=== PATIENT | female | born 1960 | race Caucasian/White ===

== ENCOUNTER 2017-05-14 08:21 | Emergency (ER) | payer OTHER ==
[~2017-05-14] VITALS: Ht 167.6 cm; Wt 50.8 kg
[2017-05-14] MEDS ORDERED: methylPREDNISolone SOD SUCC PF 125 MG/2 ML VIAL. IV ONE (08:45)
[2017-05-14] MEDS ORDERED: BENZONATATE 100 MG CAPSULE. PO ONE (08:45)
[2017-05-14] MEDS ORDERED: IPRATRPIUM/ALBUTEROL 0.5/2.5MG 3 ML NEBU. NEB ONE (08:45)
[2017-05-14] MEDS ORDERED: ALBUTEROL SULFATE 2.5 MG/3 ML NEBU. CONT NEB ONE (08:45)
--- NOTE | 2017-05-14 08:45 | PHYS DOC ---
Past Medical History Past Medical History: CAD, Hypertension, [place] Past Surgical History: Other Additional Past Surgical Histo: cardiac stent 2003 Alcohol Use: Occasionally Additional Information: "a beer in the evenings" Drug Use: None Adult General Chief Complaint Chief Complaint: SHORTNESS OF BREATH HPI HPI Patient is a 56 year old female with history of hypertension, COPD, [place], who presents today complaining of shortness of breath and a cough that began yesterday. Patient states she is a smoker using 1 pack of cigarettes per day. Patient denies any previous diagnosis for COPD , emphysema. Denies any chest pain. PCP is Dr. Bueno Review of Systems Review of Systems Constitutional: Denies fever or chills [] Eyes: Denies change in visual acuity, redness, or eye pain [] HENT: Denies nasal congestion or sore throat [] Respiratory: Reports cough or shortness of breath Cardiovascular: No additional information not addressed in HPI [] GI: Denies abdominal pain, nausea, vomiting, bloody stools or diarrhea [] : Denies dysuria or hematuria [] Musculoskeletal: Denies back pain or joint pain [] Integument: Denies rash or skin lesions [] Neurologic: Denies headache, focal weakness or sensory changes [] All other systems were reviewed and found to be within normal limits, except as documented in this note. Current Medications Current Medications Current Medications Medications (Trade) Dose Ordered Sig/Dilip Start Time Stop Time Status Last Admin Dose Admin Albuterol Sulfate (Ventolin Neb Soln) 10 mg 1X ONCE 05/14/17 08:45 05/14/17 08:46 DC 05/14/17 08:48 10 MG Albuterol/ Ipratropium (Duoneb) 3 ml 1X ONCE 05/14/17 08:45 05/14/17 08:46 DC 05/14/17 08:48 3 ML Benzonatate (Tessalon Perle) 200 mg 1X ONCE 05/14/17 08:45 05/14/17 08:46 DC 05/14/17 08:58 200 MG Lisinopril (Prinivil) 20 mg 1X ONCE 05/14/17 09:00 05/14/17 09:01 DC 05/14/17 10:33 20 MG Methylprednisolone Sodium Succinate (SOLU-Medrol 125MG VIAL) 125 mg 1X ONCE 05/14/17 08:45 05/14/17 08:46 DC 05/14/17 08:57 125 MG Allergies Allergies Allergies Coded Allergies Type Severity Reaction Last Updated Verified codeine Allergy Intermediate GI s/s,"sweating" 05/14/17 Yes Physical Exam Physical Exam Constitutional: Well developed, well nourished, no acute distress, non-toxic appearance. [] HENT: Normocephalic, atraumatic, bilateral external ears normal, oropharynx moist, no oral exudates, nose normal. [] Eyes: PERRLA, EOMI, conjunctiva normal, no discharge. [] Neck: Normal range of motion, no tenderness, supple, no stridor. [] Cardiovascular:Heart rate regular rhythm, no murmur [] Lungs & Thorax: Patient has a moist productive cough in the ED. She appears short of air. Her posterior lung bases are coarse Abdomen: Bowel sounds normal, soft, no tenderness, no masses, no pulsatile masses. [] Skin: Warm, dry, no erythema, no rash. [] Back: No tenderness, no CVA tenderness. [] Extremities: No tenderness, no cyanosis, no clubbing, ROM intact, no edema. [] Neurologic: Alert and oriented X 3, normal motor function, normal sensory function, no focal deficits noted. [] Psychologic: Affect normal, judgement normal, mood normal. [] Current Patient Data Vital Signs Vital Signs Date Time Temp Pulse Resp B/P (MAP) Pulse Ox O2 Delivery O2 Flow Rate FiO2 05/14/17 10:33 96 159/84 05/14/17 09:09 Room Air 05/14/17 08:25 98.0 28 96 98.0 Lab Values Laboratory Tests Test 05/14/17 08:35 White Blood Count 7.8 x10^3/uL (4.0-11.0) Red Blood Count 4.76 x10^6/uL (3.50-5.40) Hemoglobin 15.9 g/dL (12.0-15.5) H Hematocrit 46.9 % (36.0-47.0) Mean Corpuscular Volume 99 fL (79-100) Mean Corpuscular Hemoglobin 33 pg (25-35) Mean Corpuscular Hemoglobin Concent 34 g/dL (31-37) Red Cell Distribution Width 12.8 % (11.5-14.5) Platelet Count 312 x10^3/uL (140-400) Neutrophils (%) (Auto) 61 % (31-73) Lymphocytes (%) (Auto) 22 % (24-48) L Monocytes (%) (Auto) 10 % (0-9) H Eosinophils (%) (Auto) 6 % (0-3) H Basophils (%) (Auto) 1 % (0-3) Neutrophils # (Auto) 4.8 x10^3uL (1.8-7.7) Lymphocytes # (Auto) 1.7 x10^3/uL (1.0-4.8) Monocytes # (Auto) 0.8 x10^3/uL (0.0-1.1) Eosinophils # (Auto) 0.5 x10^3/uL (0.0-0.7) Basophils # (Auto) 0.0 x10^3/uL (0.0-0.2) Prothrombin Time 11.9 SEC (11.7-14.0) Prothrombin Time INR 0.9 (0.8-1.1) Sodium Level 142 mmol/L (136-145) Potassium Level 4.1 mmol/L (3.5-5.1) Chloride Level 104 mmol/L (98-107) Carbon Dioxide Level 25 mmol/L (21-32) Anion Gap 13 (6-14) Blood Urea Nitrogen 9 mg/dL (7-20) Creatinine 0.8 mg/dL (0.6-1.0) Estimated GFR (Cockcroft-Gault) 73.7 BUN/Creatinine Ratio 11 (6-20) Glucose Level 111 mg/dL (70-99) H Calcium Level 9.1 mg/dL (8.5-10.1) Total Bilirubin 0.3 mg/dL (0.2-1.0) Aspartate Amino Transferase (AST) 29 U/L (15-37) Alanine Aminotransferase (ALT) 22 U/L (14-59) Alkaline Phosphatase 113 U/L (46-116) Creatine Kinase 132 U/L (26-192) Creatine Kinase MB (Mass) 2.6 ng/mL (0.0-3.6) Creatine Kinase MB Relative Index 2.0 % (0-4) Troponin I Quantitative < 0.017 ng/mL (0.000-0.055) XT-Jqu-V-Type Natriuretic Peptide 554 pg/mL (0-124) H Total Protein 8.3 g/dL (6.4-8.2) H Albumin 4.1 g/dL (3.4-5.0) Albumin/Globulin Ratio 1.0 (1.0-1.7) Lipase 118 U/L (73-393) Laboratory Tests 05/14/17 08:35 Laboratory Tests 05/14/17 08:35 EKG EKG 09:[address] Vasquez sinus rythm, HR 94 no STEMI[] Radiology/Procedures Radiology/Procedures []PROCEDURE: PORTABLE CHEST 1V Single view chest 05/14/2017 Clinical indication: Short of breath Comparison: Single view chest 07/04/2012 Findings: Cortical me style silhouettes unremarkable. Calcified atheromatous disease of the thoracic aorta. No pleural effusion, pneumothorax or focal consolidation. Impression: No acute cardiopulmonary abnormality. DICTATED and SIGNED BY: IVAN PORTER MD DATE: 05/14/17939 CC: TROY BURNS MD; LUKASZ MITCHELL APRN; NON,STAFF ~ Course & Med Decision Making Course & Med Decision Making Pertinent Labs and Imaging studies reviewed. (See chart for details) This is a 56-year-old female patient with history of smoking addiction one pack- a-day who presents today with shortness of breath and a cough since yesterday. Patient was short of air on arrival to the ED. She was given a DuoNeb treatment as well as albuterol for 1 hour, she was also given Solu-Medrol. Her shortness of breath stopped right away. Unfortunately her O2 sats stayed between 88 and 89 % on room air. Highly suspect this patient has COPD exacerbation especially with her smoking history. Her chest x-ray is negative for any acute findings. Labs were negative for any acute findings. I recommended admission to the hospital for possible oxygen arrangement for home use. Patient has refused to be admitted and is signing out AMA. She has a PCP. She was instructed to follow- up with her PCP tomorrow. She'll be discharged with prednisone, albuterol inhaler and Tessalon Perles. She was encouraged to consider smoking cessation. She was also encouraged to return to the ED at any point she needs medical care. Dragon Disclaimer Dragon Disclaimer This electronic medical record was generated, in whole or in part, using a voice recognition dictation system. Departure Departure Impression: Primary Impression: COPD exacerbation Additional Impressions: Shortness of breath Smoking addiction Hypoxemia Disposition: AGAINST MEDICAL ADVICE Condition: STABLE Referrals: TROY BURNS MD (PCP) call your doctor tomorrow and set up a follow up appointment. Patient Instructions: Chronic Obstructive Pulmonary Disease Exacerbation, Hypoxemia, Shortness of Breath Additional Instructions: You were seen with symptoms consistent with a COPD exacerbation. Please consider smoking cessation. You were offered admission to the hospital for low oxygen saturation and COPD exacerbation. You declined admission. Please follow- up with your primary care doctor tomorrow. Come back to the ED at any point you are concerned about your symptoms. Scripts Azithromycin (AZITHROMYCIN TABLET) 250 Mg Tablet 1 PKG PO UD, #6 TAB Prov: LUKASZ MITCHELL APRN 05/14/17 Albuterol Sulfate (VENTOLIN HFA INHALER) 18 Gm Hfa.aer.ad 2 PUFF INH Q4HRS for FOR ASTHMA, #1 INHALER 0 Refills Prov: LUKASZ MITCHELL APRN 05/14/17 Benzonatate (TESSALON PERLE) 100 Mg Capsule 1 CAP PO TID, #30 CAP Prov: LUKASZ MITCHELL APRN 05/14/17 Prednisone (PREDNISONE) 50 Mg Tablet 1 TAB PO DAILY, #4 TAB Prov: LUKASZ MITCHELL APRN 05/14/17 Problem Qualifiers LUKASZ MITCHELL APRN May 14, 2017 08:45
[2017-05-14 08:48] LABS: BASO % 1 % (0-3); EOS % 6 % (0-3); HEMATOCRIT 46.9 % (36.0-47.0); HEMOGLOBIN 15.9 g/dL (12.0-15.5); LYMPH # 1.7 x10^3/uL (1.0-4.8); LYMPH % 22 % (24-48); MEAN CORPUSCULAR HEMOGLOBIN 33 pg (25-35); MEAN CORPUSCULAR HGB CONC 34 g/dL (31-37); MEAN CORPUSCULAR VOLUME 99 fL (79-100); MONO % 10 % (0-9); NEUT % 61 % (31-73); PLATELET COUNT 312 x10^3/uL (140-400); RED BLOOD COUNT 4.76 x10^6/uL (3.50-5.40); RED CELL DISTRIBUTION WIDTH 12.8 % (11.5-14.5); WHITE BLOOD COUNT 7.8 x10^3/uL (4.0-11.0)
[2017-05-14] MEDS ORDERED: LISINOPRIL 10 MG TABLET PO ONE (09:00)
[2017-05-14 09:04] LABS: INR 0.9 (0.8-1.1); PROTHROMBIN TIME PATIENT 11.9 SEC (11.7-14.0)
[2017-05-14 09:09] LABS: CALCIUM 9.1 mg/dL (8.5-10.1); CREATININE 0.8 mg/dL (0.6-1.0); GFR 73.7; POTASSIUM 4.1 mmol/L (3.5-5.1)
[2017-05-14 09:10] LABS: ALBUMIN 4.1 g/dL (3.4-5.0); TOTAL BILIRUBIN 0.3 mg/dL (0.2-1.0); TOTAL PROTEIN 8.3 g/dL (6.4-8.2)
[2017-05-14 09:22] LABS: CKMB MASS 2.6 ng/mL (0.0-3.6)
--- NOTE | 2017-05-14 09:44 | RAD ---
Single view chest 05/14/2017 Clinical indication: Short of breath Comparison: Single view chest 07/04/2012 Findings: Cortical me style silhouettes unremarkable. Calcified atheromatous disease of the thoracic aorta. No pleural effusion, pneumothorax or focal consolidation. Impression: No acute cardiopulmonary abnormality.
[2017-05-14] MEDS ORDERED: PRED50TA PO (11:17)
[2017-05-14] MEDS ORDERED: VENTOLIN HFA18 GM INH (11:17)
[2017-05-14] MEDS ORDERED: BENZ100C PO (11:17)
[2017-05-14] MEDS ORDERED: AZIT250T6 PO (11:30)
[2017-05-14 11:45] VITALS: BP 156/74
--- NOTE | 2017-05-14 13:23 | EKG ---
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
== END 2017-05-14 11:45 | disposition left against medical advice (07) ==
LOC: ER 08:21
DX: J44.1 Chronic obstructive pulmonary disease with (acute) exacerbation (principal); R09.02 Hypoxemia; F17.210 Nicotine dependence, cigarettes, uncomplicated; I10 Essential (primary) hypertension; I25.10 Atherosclerotic heart disease of native coronary artery without angina pectoris; I25.2 Old myocardial infarction; Z95.5 Presence of coronary angioplasty implant and graft; Z88.5 Allergy status to narcotic agent
CPT/HCPCS: 36415; 71010; 80053; 82553; 83690; 83880; 84484; 85025; 85610; 87040; 93005; 94644; 96374; 99285; J2930; J7613; J7620

== ENCOUNTER 2018-10-25 02:59 | Emergency (ER) | payer BC, OTHER ==
[~2018-10-25] VITALS: Ht 152.4 cm; Wt 50.8 kg
[~2018-10-25 02:59] MED LIST: AZIT250T6 PO; BENZ100C PO; PRED50TA PO; VENTOLIN HFA18 GM INH
[2018-10-25 03:10] VITALS: BP 187/99
[2018-10-25] MEDS ORDERED: HYDROcodone/APAP 5/325MG 1 TAB TABLET PO ONE (03:30)
[2018-10-25] MEDS ORDERED: HYDR-3164 PO (04:07)
[2018-10-25] MEDS ORDERED: BENZ100C PO (04:07)
--- NOTE | 2018-10-25 04:07 | PHYS DOC ---
Past Medical History Past Medical History: CAD, Hypertension, [place] Past Surgical History: Other Additional Past Surgical Histo: cardiac stent 2003 Alcohol Use: Occasionally Drug Use: None Adult General Chief Complaint Chief Complaint: MECHANICAL FALL HPI HPI Patient is a 58 year old left handed female who presents with complaining of fall and injury to right side of chest and right shoulder. Patient states she had the accidental fall from a standing position 5 days ago and landed on right shoulder and right chest with increasing pain for the last couple days. Patient states the pain getting worse with her chronic cough. Patient denies fever and chills, vomiting and diarrhea, productive cough. Review of Systems Review of Systems Constitutional: Denies fever or chills [] Eyes: Denies change in visual acuity, redness, or eye pain [] HENT: Denies nasal congestion or sore throat [] Respiratory: Reports cough Cardiovascular: No additional information not addressed in HPI [] GI: Denies abdominal pain, nausea, vomiting, bloody stools or diarrhea [] : Denies dysuria or hematuria [] Musculoskeletal: Denies back pain, reports joint pain [] Integument: Denies rash or skin lesions [] Neurologic: Denies headache, focal weakness or sensory changes [] Endocrine: Denies polyuria or polydipsia [] All other systems were reviewed and found to be within normal limits, except as documented in this note. Current Medications Current Medications Current Medications Medications (Trade) Dose Ordered Sig/Dilip Start Time Stop Time Status Last Admin Dose Admin Acetaminophen/ Hydrocodone Bitart (Lortab 5/325) 1 tab 1X ONCE 10/25/18 03:30 10/25/18 03:31 DC 10/25/18 03:35 1 TAB Allergies Allergies Allergies Coded Allergies Type Severity Reaction Last Updated Verified codeine Allergy Intermediate GI s/s,"sweating" 05/14/17 Yes Physical Exam Physical Exam Constitutional: Thin patient, mild distress, non-toxic appearance. [] HENT: Normocephalic, atraumatic. Eyes: PERRLA, EOMI, conjunctiva normal, no discharge. [] Neck: Normal range of motion, no tenderness, supple, no stridor. [] Cardiovascular:Heart rate regular rhythm, no murmur [] Lungs & Thorax: Right breast contusion and ecchymoses, chest wall without emphysema , Bilateral breath sounds clear to auscultation [] Abdomen: Bowel sounds normal, soft, no tenderness, no masses, no pulsatile masses. [] Skin: Warm, dry, no erythema, no rash. [] Back: No tenderness, no CVA tenderness. [] Extremities: Right shoulder with old ecchymoses and painful range of motion without neurovascular deficit. Neurologic: Alert and oriented X 3, normal motor function, normal sensory function, no focal deficits noted. [] Psychologic: Affect normal, judgement normal, mood normal. [] Current Patient Data Vital Signs Vital Signs Date Time Temp Pulse Resp B/P (MAP) Pulse Ox O2 Delivery O2 Flow Rate FiO2 10/25/18 03:35 20 Room Air 10/25/18 03:10 98.3 80 187/99 (128) 96 98.3 EKG EKG [] Radiology/Procedures Radiology/Procedures Right rib x-ray with chest x-ray and right shoulder x-ray interpreted by me and did not show sign of acute problem Course & Med Decision Making Course & Med Decision Making Pertinent Labs and Imaging studies reviewed. (See chart for details) Evaluation of patient in ER showed 4-year-old male patient with a fall several days ago and complaining of pain in right shoulder and right side of chest. Patient had old ecchymosis on right shoulder and right breast and chest wall with unremarkable x-ray. Patient treated with [place] and felt better. Patient was advised to quit smoking. Dragon Disclaimer Dragon Disclaimer This electronic medical record was generated, in whole or in part, using a voice recognition dictation system. Departure Departure Impression: Primary Impression: Chest wall contusion Additional Impressions: Right shoulder strain Fall at home Cough Disposition: HOME, SELF-CARE (at 040) Condition: IMPROVED Referrals: TROY BURNS MD (PCP) Patient Instructions: Chest Contusion, Cough, Adult, Shoulder Sprain, Smoking Cessation, Tips For Success Additional Instructions: Drink plenty of liquids Follow-up with your primary care physician in 3-5 days Return to ER if not getting better Scripts Benzonatate (TESSALON PERLE) 100 Mg Capsule 1 CAP PO TID for cough, #21 CAP Prov: PRABHJOT PATEL MD 10/25/18 Hydrocodone/Apap 5-325 (NORCO 5-325 TABLET) 1 Each Tablet 1 TAB PO PRN Q6HRS PRN for PAIN, #14 TAB 0 Refills Prov: PRABHJOT PATEL MD 10/25/18 Problem Qualifiers Primary Impression: Chest wall contusion Encounter type: initial encounter Laterality: right Qualified Codes: S20.211A - Contusion of right front wall of thorax, initial encounter Additional Impressions: Right shoulder strain Encounter type: initial encounter Qualified Codes: S46.911A - Strain of unspecified muscle, fascia and tendon at shoulder and upper arm level, right arm, initial encounter Fall at home Encounter type: subsequent encounter Qualified Codes: W19.XXXD - Unspe cified fall, subsequent encounter; Y92.009 - Unspecified place in unspecified non-institutional (private) residence as the place of occurrence of the external cause PRABHJOT PATEL MD October 25, 2018 04:07
--- NOTE | 2018-10-25 08:23 | RAD ---
Right RIBS with chest, 3 views, 10/25/2018: HISTORY: Fall No right rib fracture is identified. There is no evidence of underlying pneumothorax, hemothorax or pulmonary infiltrate. Scattered calcified granulomata are present in the lungs. The heart size is normal. There is calcific plaquing of the aorta. IMPRESSION: No acute right rib abnormality is detected. Electronically signed by: Casey Torrez MD (10/25/2018 8:21 AM) [facility]
--- NOTE | 2018-10-25 08:25 | RAD ---
Examination: 2 views of the right shoulder HISTORY: History of fall. COMPARISON: None available. FINDINGS: The humerus head is within the glenoid. Mild degenerative changes identified in the glenohumeral joint, acromioclavicular joint. IMPRESSION: 1. No acute osseous findings Electronically signed by: Cesar Ochoa MD (10/25/2018 8:22 AM) [facility]
== END 2018-10-25 04:15 | disposition home or self-care (01) ==
LOC: ER 02:59
DX: S46.811A Strain of other muscles, fascia and tendons at shoulder and upper arm level, right arm, initial encounter (principal); S20.211A Contusion of right front wall of thorax, initial encounter; R05 Cough; I10 Essential (primary) hypertension; I25.2 Old myocardial infarction; I25.10 Atherosclerotic heart disease of native coronary artery without angina pectoris; Z88.5 Allergy status to narcotic agent; W18.39XA Other fall on same level, initial encounter; Y93.89 Activity, other specified; Y92.009 Unspecified place in unspecified non-institutional (private) residence as the place of occurrence of the external cause; Y99.8 Other external cause status
CPT/HCPCS: 71101; 73030; 99284

== ENCOUNTER 2020-07-20 17:12 | Inpatient (IN) | payer BC ==
[~2020-07-20] VITALS: Ht 167.6 cm; Wt 50.3 kg
[~2020-07-20 17:12] MED LIST changes: +HYDR-3164 PO
[2020-07-20 17:49] LABS: BASO # 0.1 x10^3/uL (0.0-0.2); BASO % 0 % (0-3); EOS # 0.1 x10^3/uL (0.0-0.7); EOS % 0 % (0-3); HEMATOCRIT 27.1 % (36.0-47.0); HEMOGLOBIN 8.4 g/dL (12.0-15.5); LYMPH # 1.2 x10^3/uL (1.0-4.8); LYMPH % 8 % (24-48); MEAN CORPUSCULAR HEMOGLOBIN 23 pg (25-35); MEAN CORPUSCULAR HGB CONC 31 g/dL (31-37); MEAN CORPUSCULAR VOLUME 73 fL (79-100); MONO % 7 % (0-9); NEUT # 12.7 x10^3/uL (1.8-7.7); NEUT % 85 % (31-73); PLATELET COUNT 653 x10^3/uL (140-400); RED BLOOD COUNT 3.69 x10^6/uL (3.50-5.40); RED CELL DISTRIBUTION WIDTH 18.2 % (11.5-14.5)
--- NOTE | 2020-07-20 18:08 | EKG ---
[facility] [address] [place] [address] Test Date: 2020-07-20 Test Time: 17:17:22 Pat Name: SHAHRAM ESPINO Department: Room: Gender: F Brown Sourer: : 1960 Requested By: SHAUNNA BRANNON Order Number: [id number] Reading MD: Measurements Intervals [place] Rate: 101 P: 54 [place]: 154 QRS: 31 QRSD: 88 T: 112 QT: 344 QTc: 447 Interpretive Statements SINUS TACHYCARDIA VENTRICULAR PREMATURE COMPLEX(ES) QRS(T) CONTOUR ABNORMALITY CONSIDER ANTEROSEPTAL MYOCARDIAL DAMAGE ST & T ABNORMALITY, CONSIDER ANTEROLATERAL ISCHEMIA OR LEFT VENTRICULAR STRAIN ABNORMAL ECG RI6.01 No previous ECG available for comparison
[2020-07-20 18:09] LABS: CREATININE 0.7 mg/dL (0.6-1.0); GFR 85.1; POTASSIUM 3.2 mmol/L (3.5-5.1)
[2020-07-20 18:13] LABS: ALBUMIN 2.2 g/dL (3.4-5.0); ALBUMIN/GLOBULIN RATIO 0.4 (1.0-1.7); MAGNESIUM 2.1 mg/dL (1.8-2.4); TOTAL BILIRUBIN 0.2 mg/dL (0.2-1.0); TOTAL PROTEIN 7.1 g/dL (6.4-8.2)
[2020-07-20 18:24] LABS: CREATINE KINASE 74 U/L (26-192)
--- NOTE | 2020-07-20 18:37 | PHYS DOC ---
Past Medical History Past Medical History: High Cholesterol, Hypertension, DC Past Surgical History: Other Additional Past Surgical Histo: CARDIAC CATH 2003 Smoking Status: Current Every Day Smoker Additional Information: 1PK/DAILY Alcohol Use: Heavy Additional Information: 4-5BEERS NIGHTLY Drug Use: None General Adult EDM: Chief Complaint: CHEST PAIN HPI: HPI: Patient is a 59 year old female presents to the emergency department reporting a history of intermittent chest pains since Monday. Patient states that today her chest pain started at 1430 describes it as a throbbing pain and feels like something heavy is sitting on my chest. Patient states that she called the ambulance to bring her to the emergency department and her pain resolved in route. Patient currently states she has no chest pain, no shortness of breath, no chest congestion, no nasal congestion, no respiratory scan, no nausea, vomiting, diarrhea, or constipation. Patient does state that her pressure was a 9/10 on a 1-10 pain scale during the chest pressure episode prior to arrival. Patient states that she did break out in a sweat that lasted up until the time her pain resolved. Patient denies diaphoresis at this time. Patient states that she is a pack-a-day smoker since she was 11 years old. Patient denies drinking alcohol or using illicit drugs. Patient denies numbness or tingling to her extremities, states she has not had a flu vaccination in 2019, states she has not had a COVID-19 vaccination. Patient denies homicidal or suicidal ideations, denies recent anxieties or feelings of depression. Patient denies any other complaints or physical concerns. Review of Systems: Review of Systems: 14 body systems of review of systems have been reviewed. See HPI for pertinent positives and negative responses, otherwise all other systems are negative, nonpertinent or noncontributory. Heart Score: HEART Score for Chest Pain: HEART Score for Chest Pain Response (Comments) Value History Highly Suspicious [address] Depression 2 Age >45 - < 65 1 Risk Factors 1 or 2 Risk Factors 1 Troponin >3 x Normal Limit 2 Total 8 Risk Factors: Risk Factors: DM, Current or recent (<one month) smoker, HTN, HLP, family history of CAD, obesity. Risk Scores: Score 0 - 3: 2.5% MACE over next 6 weeks - Discharge Home Score 4 - 6: 20.3% MACE over next 6 weeks - Admit for Clinical Observation Score 7 - 10: 72.7% MACE over next 6 weeks - Early Invasive Strategies Allergies: Allergies: Allergies Coded Allergies Type Severity Reaction Last Updated Verified latex Allergy Intermediate Rash 07/20/20 Yes codeine Adverse Reaction Intermediate GI s/s,"sweating" 07/20/20 Yes amlodipine Adverse Reaction Mild DIZZINESS 07/20/20 Yes Physical Exam: PE: Constitutional: Well developed, well nourished, no acute distress, non-toxic appearance. HENT: Normocephalic, atraumatic, bilateral external ears normal, oropharynx moist, no oral exudates, nose normal. Eyes: PERRLA, EOMI, conjunctiva normal, no discharge. Neck: Normal range of motion, no tenderness, supple, no stridor. Cardiovascular:Heart rate regular rhythm, no murmur, heart sounds S1-S2. Lungs & Thorax: Bilateral breath sounds clear to auscultation all lung coe. Abdomen: Bowel sounds normal, soft, no tenderness, no masses, no pulsatile masses. Skin: Warm, dry, no erythema, no rash. Back: No tenderness, no CVA tenderness. Extremities: No tenderness, no cyanosis, no clubbing, ROM intact, no edema. Neurologic: Alert and oriented X 3, normal motor function, normal sensory function, no focal deficits noted. Psychologic: Affect normal, judgement normal, mood normal. Current Patient Data: Labs: Laboratory Tests Test 07/20/20 17:25 White Blood Count 15.0 x10^3/uL Red Blood Count 3.69 x10^6/uL Hemoglobin 8.4 g/dL Hematocrit 27.1 % Mean Corpuscular Volume 73 fL Mean Corpuscular Hemoglobin 23 pg Mean Corpuscular Hemoglobin Concent 31 g/dL Red Cell Distribution Width 18.2 % Platelet Count 653 x10^3/uL Neutrophils (%) (Auto) 85 % Lymphocytes (%) (Auto) 8 % Monocytes (%) (Auto) 7 % Eosinophils (%) (Auto) 0 % Basophils (%) (Auto) 0 % Neutrophils # (Auto) 12.7 x10^3/uL Lymphocytes # (Auto) 1.2 x10^3/uL Monocytes # (Auto) 1.0 x10^3/uL Eosinophils # (Auto) 0.1 x10^3/uL Basophils # (Auto) 0.1 x10^3/uL Segmented Neutrophils % 89 % Lymphocytes % 5 % Monocytes % 6 % Platelet Estimate Increased Hypochromasia Mod Anisocytosis Slight Microcytosis Slight Prothrombin Time 14.5 SEC Prothromb Time International Ratio 1.2 Activated Partial Thromboplast Time 34 SEC Sodium Level 138 mmol/L Potassium Level 3.2 mmol/L Chloride Level 101 mmol/L Carbon Dioxide Level 25 mmol/L Anion Gap 12 Blood Urea Nitrogen 7 mg/dL Creatinine 0.7 mg/dL Estimated GFR (Cockcroft-Gault) 85.1 BUN/Creatinine Ratio 10 Glucose Level 150 mg/dL Calcium Level 8.0 mg/dL Magnesium Level 2.1 mg/dL Total Bilirubin 0.2 mg/dL Aspartate Amino Transf (AST/SGOT) 12 U/L Alanine Aminotransferase (ALT/SGPT) 10 U/L Alkaline Phosphatase 83 U/L Creatine Kinase 74 U/L Creatine Kinase MB (Mass) 4.5 ng/mL Creatine Kinase MB Relative Index % Troponin I Quantitative 0.912 ng/mL Total Protein 7.1 g/dL Albumin 2.2 g/dL Albumin/Globulin Ratio 0.4 Current Medications Medications (Trade) Dose Ordered Sig/Dilip Route PRN Reason Start Time Stop Time Status Last Admin Dose Admin Potassium Chloride (Klor-Con) 20 meq 1X ONCE PO 07/20/20 18:45 07/20/20 18:46 DC 07/20/20 19:06 Enoxaparin Sodium (Lovenox 60mg Syringe) 46 mg 1X ONCE SQ 07/20/20 19:30 07/20/20 19:32 DC Laboratory Tests Test 07/20/20 17:25 White Blood Count 15.0 x10^3/uL (4.0-11.0) H Red Blood Count 3.69 x10^6/uL (3.50-5.40) Hemoglobin 8.4 g/dL (12.0-15.5) L Hematocrit 27.1 % (36.0-47.0) L Mean Corpuscular Volume 73 fL (79-100) L Mean Corpuscular Hemoglobin 23 pg (25-35) L Mean Corpuscular Hemoglobin Concent 31 g/dL (31-37) Red Cell Distribution Width 18.2 % (11.5-14.5) H Platelet Count 653 x10^3/uL (140-400) H Neutrophils (%) (Auto) 85 % (31-73) H Lymphocytes (%) (Auto) 8 % (24-48) L Monocytes (%) (Auto) 7 % (0-9) Eosinophils (%) (Auto) 0 % (0-3) Basophils (%) (Auto) 0 % (0-3) Neutrophils # (Auto) 12.7 x10^3/uL (1.8-7.7) H Lymphocytes # (Auto) 1.2 x10^3/uL (1.0-4.8) Monocytes # (Auto) 1.0 x10^3/uL (0.0-1.1) Eosinophils # (Auto) 0.1 x10^3/uL (0.0-0.7) Basophils # (Auto) 0.1 x10^3/uL (0.0-0.2) Platelet Estimate Pending Sodium Level 138 mmol/L (136-145) Potassium Level 3.2 mmol/L (3.5-5.1) L Chloride Level 101 mmol/L (98-107) Carbon Dioxide Level 25 mmol/L (21-32) Anion Gap 12 (6-14) Blood Urea Nitrogen 7 mg/dL (7-20) Creatinine 0.7 mg/dL (0.6-1.0) Estimated GFR (Cockcroft-Gault) 85.1 BUN/Creatinine Ratio 10 (6-20) Glucose Level 150 mg/dL (70-99) H Calcium Level 8.0 mg/dL (8.5-10.1) L Magnesium Level 2.1 mg/dL (1.8-2.4) Total Bilirubin 0.2 mg/dL (0.2-1.0) Aspartate Amino Transferase (AST) 12 U/L (15-37) L Alanine Aminotransferase (ALT) 10 U/L (14-59) L Alkaline Phosphatase 83 U/L (46-116) Troponin I Quantitative 0.912 ng/mL (0.000-0.055) Total Protein 7.1 g/dL (6.4-8.2) Albumin 2.2 g/dL (3.4-5.0) L Albumin/Globulin Ratio 0.4 (1.0-1.7) L Laboratory Tests 07/20/20 17:25 Laboratory Tests 07/20/20 17:25 Vital Signs: Vital Signs Date Time Temp Pulse Resp B/P (MAP) Pulse Ox O2 Delivery O2 Flow Rate FiO2 07/20/20 17:12 99.0 97 16 107/71 (83) 98 Room Air 99.0 EKG: EKG: EKG performed at 1717 by ED nursing staff shows tachycardia at a heart rate of 101 bpm, Q TC interval 0.447, FL interval 0.154, no acute STEMI, no ACS, ST depression in leads V3, V4 and V5, EKG interpreted by ED attending Dr. Oliver. EKG performed at 1911 by ED nursing staff shows a normal sinus rhythm without ectopy with a heart rate of 85 bpm, FL interval 0.144, QTc interval 0.460, no acute STEMI, no ACS, ST depression noted in leads V4 and V5, EKG interpreted by ED attending Dr. Hackett Radiology/Procedures: Radiology/Procedures: PATIENT: SHAHRAM ESPINO ACCOUNT: [id number] : 1960 LOCATION: ER AGE: 59 SEX: F EXAM STATUS: REG ER ORD. PHYSICIAN: SHAUNNA BRANNON APRN REASON: CHEST PAIN PROCEDURE: CHEST AP ONLY INDICATION: Reason: CHEST PAIN / Spl. Instructions: / History: COMPARISON: October 25, 2018 FINDINGS: Single view of chest obtained. Dense opacity within the left lung with adjacent interstitial and groundglass component. Calcific atherosclerosis. IMPRESSION: * Dense opacity at the left lung. Differential consideration would include pn eumonia as well as lung neoplasm. * There are some suspected calcified nodules which could be from chronic granulomatous disease. Electronically signed by: Miguelito Bose MD (07/20/2020 7:18 PM) [id number] DICTATED and SIGNED BY: MIGUELITO BOSE MD DATE: 07/20/20 [id number] Course & Med Decision Making: Course & Med Decision Making Pertinent Labs and Imaging studies reviewed. (See chart for details) 59-year-old female, vital signs reviewed, presents emergency department complaining of chest pressure just prior to arrival. Patient's physical examination concerning for possible cardiorespiratory process. Discussed with patient need to stop smoking cigarettes and offered smoking cessation referrals, A cardiorespiratory work-up was initiated in the ED. patient states she took a 325 mg aspirin prior to arrival to the ED today. Patient's EKG concerning for ischemic changes and V3 4 and 5, EKG was interp reted by ED attending physician Dr. Oliver. Pending labs and x-ray PA lateral chest interpretation at this time. Upon reevaluation of the patient, patient states that she needs to leave the emergency department immediately. Patient states that she contacted her insurance company and was told that they would pay for the emergency room visit however if she was admitted to the hospital they would not pay for her emergency room visit. Patient states she cannot afford this as she wishes to leave the emergency department immediately. Discussed with patient concerns related to cardio pulmonary process that most likely will require admission to the hospital. Patient was adamant that she needs to leave the emergency department and states "I will sign your AMA form but I need to go " Received phone call from lab reporting elevated troponin of 0.912. Discussed elevated troponin with patient, urged patient to stay to be admitted and evaluated by cardiology for NSTEMI, patient states that she cannot stay as she wishes to leave now. I urged the patient once again to stay and be admitted and evaluated by cardiology especially here at [facility], I told patient I fear that she will if she leaves AGAINST MEDICAL ADVICE. Patient states that she understands her risks but cannot afford to pay for the hospital bill, patient is adamant that she needs to leave the emergency department, patient states she will sign AMA form. Patient is of sound mind and body, alert and oriented x3, is stable and clinically sober, able to make her own educated medical decisions, patient refuses further treatment in the emergency department, patient refuses further evaluation in the emergency department, patient refuses recommended admission to [facility] for further evaluation by cardiology specialty of her diagnosis of NSTEMI and hypokalemia, patient signed AMA form and left the emergency department AGAINST MEDICAL ADVICE. Patient at bedside, patient has decided to accept admission process after discussing with her . Discussed case with HIMS physician Dr. Harmon who has agreed to accept patient admission as primary physician to the telemetry unit with cardiology consult. Called and discussed case with theology specialist Dr. Pham, Dr. Pham recommended no treatment at this time for hypokalemia and hypocalcemia, however is aware of anemia and recommended dose of Lovenox prior to admission to telemetry unit, asked for repeat EKG. Heparin protocol not recommended by cardiology at this time. Patient admitted to telemetry unit, patient is amendable to admission. Critical Care Procedure Note Total critical care time: Approximately 30 minutes Due to a high probability of clinically significant, life threatening deterioration, the patient required my highest level of preparedness to intervene emergently and I personally spent this critical care time directly and personally managing the patient. This critical care time included obtaining a history; examining the patient; pulse oximetry; ordering and review of studies; arranging urgent treatment with development of a management plan; evaluation of patient's response to treatment; frequent reassessment; and, discussions with other providers. This critical care time was performed to assess and manage the high probability of imminent, life-threatening deterioration that could result in multi-organ failure. It was exclusive of separately billable procedures and treating other patients and teaching time. Please see MDM section and the rest of the note for further information on patient assessment and treatment. Dragon Disclaimer: Dragon Disclaimer: This electronic medical record was generated, in whole or in part, using a voice recognition dictation system. Departure Departure Impression: Primary Impression: NSTEMI (non-ST elevated myocardial infarction) Additional Impressions: Hypokalemia Hypocalcemia Anemia Qualified Codes: D64.9 - Anemia, unspecified Smoking addiction Disposition: 09 ADMITTED INPT THIS HOSP Admitting Physician: FAHAD (Admit to Dr. HARMON to the telemetry unit, Dr. Pham consulted for cardiology) Condition: GUARDED Referrals: TROY BURNS MD (PCP) SHAUNNA BRANNON APRN Jul 20, 2020 18:37
[2020-07-20] MEDS ORDERED: POTASSIUM CHLORIDE 20 MEQ TABLET.ER. PO ONE (18:45)
[2020-07-20 19:13] LABS: % LYMPHS 5 % (24-48); % MONOS 6 % (0-10); % SEGS 89 % (35-66); ANISOCYTOSIS SLIGHT; HYPOCHROMIA MOD; MICROCYTOSIS SLIGHT; PLT ESTIMATE INCREASED (ADEQUATE)
--- NOTE | 2020-07-20 19:20 | RAD ---
INDICATION: Reason: CHEST PAIN / Spl. Instructions: / History: COMPARISON: October 25, 2018 FINDINGS: Single view of chest obtained. Dense opacity within the left lung with adjacent interstitial and groundglass component. Calcific ath erosclerosis. IMPRESSION: * Dense opacity at the left lung. Differential consideration would include pneumonia as well as lung neoplasm. * There are some suspected calcified nodules which could be from chronic granulomatous disease. Electronically signed by: Adriel Solitario MD (07/20/2020 7:18 PM) [id number]
[2020-07-20 19:46] LABS: PROTHROMBIN TIME PATIENT 14.5 SEC (11.7-14.0)
--- NOTE | 2020-07-20 20:56 | HP ---
ADMIT DATE: 07/20/2020 CHIEF COMPLAINT: Chest pain. HISTORY OF PRESENT ILLNESS: The patient is a pleasant 59-year-old female who presented to the Emergency Room with chest pain. Her troponin was a little high at 0.92. She has 2 previous old stents. I discussed the case with Emergency Room physician. We are going to admit the patient and consult Cardiology. PAST MEDICAL HISTORY: Chronic obstructive pulmonary disease, cardiac catheterization, two previous stents, hyperlipidemia, hypertension, myocardial infarction and heavy alcohol use. ALLERGIES: AMLODIPINE, CODEINE AND LATEX. FAMILY HISTORY: Coronary artery disease. SOCIAL HISTORY: She drinks 5 beers a night. She smokes a pack a day. MEDICATIONS: Reviewed, please refer to the MRAD. REVIEW OF SYSTEMS: GENERAL: No history of weight change, weakness or fevers. SKIN: No bruising, hair changes or rashes. EYES: No blurred, double or loss of vision. NOSE AND THROAT: No history of nosebleeds, hoarseness or sore throat. HEART: The patient complains of chest pain. LUNGS: Denies cough, hemoptysis, wheezing or shortness of breath. GASTROINTESTINAL: Denies changes in appetite, nausea, vomiting, diarrhea or constipation. GENITOURINARY: No history of frequency, urgency, hesitancy or nocturia. NEUROLOGIC: Denies history of numbness, tingling, tremor or weakness. PSYCHIATRIC: No history of panic, anxiety or depression. ENDOCRINE: No history of heat or cold intolerance, polyuria or polydipsia. EXTREMITIES: Denies muscle weakness, joint pain, pain on walking or stiffness. PHYSICAL EXAMINATION: VITALS: Within normal limits and are stable. GENERAL: No apparent distress. Alert and oriented. HEENT: Normal cephalic atraumatic, external auditory canals are patent EYES: Extraocular muscles are intact, pupils are equally round and reactive to light and accommodation MUSCULOSKELETAL: Well developed, well nourished, good range of motion ENDOCRINE: No thyromegaly was palpated LYMPHATICS: No cervical chain or axillary nodes were noted HEMATOPOIETIC: No bruising NECK: Supple, no JVD, no thyromegaly was noted. LUNGS: Clear to auscultation in all lung coe without rhonchi or wheezing. HEART: RRR, S1, S2 present. Peripheral pulses intact, no obvious murmurs were noted. ABDOMEN: Soft, nontender. Positive bowel sounds no organomegaly, normal bowel sounds. EXTREMITIES: Without any cyanosis, clubbing, or edema. Pedal pulses intact, Homans sign is negative. NEUROLOGIC: Normal speech, normal tone. A & O x3, moves all extremities, no obvious focal deficits. PSYCHIATRIC: Normal affect, normal mood. Stable. SKIN: No ulcerations or rashes, good skin turgor, no jaundice. VASCULAR: Good capillary refill, neurovascular bundle appears to be intact. LABORATORY DATA: White count is 15, hemoglobin is 8.4, platelets 653. Troponin is 0.912. ASSESSMENT AND PLAN: Acute myocardial infarction. The patient will be admitted. We will check serial enzymes, serial EKGs. Consult Cardiology. Home medications, deep venous thrombosis prophylaxis. Full code. We are loading her with Lovenox. PROGNOSIS: Guarded. CC TIME: 31 minutes. CÉSAR SEVERINO DO DR: MIHAI/dakota JOB#: [id number] / [id number]
[2020-07-20 21:30] VITALS: BP 127/76
[2020-07-20] MEDS: ALBUTEROL SULFATE 2.5 MG/3 ML NEBU. NEB PRN (22:26)
[2020-07-20] MEDS ORDERED: ASPI325T8 PO (22:28)
[2020-07-20] MEDS ORDERED: LISI20TA18 PO (22:28)
[2020-07-20 23:00] VITALS: BP 127/76
[2020-07-21] VITALS (18 sets, daily range): BP systolic 95–174; BP diastolic 50–104
[2020-07-21] MEDS ORDERED: NITROGLYCERIN SUBLINGUAL 0.4 MG BOTTLE OF 25. SL PRN (03:15)
[2020-07-21] MEDS ORDERED: ACETAMINOPHEN 325 MG TABLET. PO PRN ×2 (03:15→07:15)
[2020-07-21] MEDS: ALBUTEROL SULFATE 2.5 MG/3 ML NEBU. NEB PRN (06:27)
[2020-07-21] MEDS ORDERED: MORPHINE SULFATE 4 MG/ML VIAL. IV PRN (07:15)
[2020-07-21] MEDS ORDERED: ONDANSETRON PF 4 MG/2 ML VIAL. IVP PRN (07:15)
[2020-07-21] MEDS ORDERED: 0.9 % SODIUM CHLORIDE 10 ML DISP.SYRIN. IV PRN (07:15)
[2020-07-21] MEDS ORDERED: MORPHINE SULFATE 2 MG/ML VIAL. IV PRN (07:15)
[2020-07-21] MEDS ORDERED: MAG HYDROX/ALUMINUM HYD/SIMETH 30 ML ORAL.SUSP PO PRN (07:15)
[2020-07-21] MEDS ORDERED: ZOLPIDEM 5 MG TABLET. PO PRN (07:15)
[2020-07-21] MEDS ORDERED: MORPHINE SULFATE 2 MG/ML VIAL. IVP PRN (07:15)
[2020-07-21] MEDS ORDERED: DOCUSATE SODIUM 100 MG CAPSULE. PO PRN (07:15)
[2020-07-21 08:37] LABS: CALCIUM 8.4 mg/dL (8.5-10.1); CREATININE 0.7 mg/dL (0.6-1.0); GFR 85.1; POTASSIUM 4.3 mmol/L (3.5-5.1)
[2020-07-21 08:38] LABS: CHOLESTEROL/HDL RATIO 2.5
[2020-07-21] MEDS: ASPIRIN CHEWABLE 81 MG TABLET. PO SCH (09:28)
[2020-07-21] MEDS: NICOTINE 14MG PATCH. TD PRN (09:48)
[2020-07-21] MEDS ORDERED: AMLO-186 PO (09:50)
[2020-07-21] MEDS ORDERED: ATOR20TA58 PO (09:50)
--- NOTE | 2020-07-21 10:11 | PDOC2 ---
TERRI JERONIMO MANUFACTURING PROJECT ENGINEER 07/21/20 1011: CARDIAC CONSULT DATE OF CONSULT Date of Consult DATE: 07/21/20 TIME: 09:59 REASON FOR CONSULT Reason for Consult: NSTEMI REFERRING PHYSICIAN Referring Physician: Joo SOURCE Source: Chart review, Patient HISTORY OF PRESENT ILLNESS HISTORY OF PRESENT ILLNESS This is a pleasant 59 yo female admitted for complains of chest pain. Reports that she has been having intermittent chest pressure since Monday. Yesterday she was walking up the hill to get to her car and had a throbbing frontal NATARAJAN but no neuro symptoms. She had some chest pressure and palpitations and had MILLS and actually vomited at some point. She has noted recently fatigue and with MILLS. She does smoke and has COPD. She has CAD with PCI in 2003. She has not followed up with dictaphone operator in a long time. Reports no bleeding hx, PUD and no hx of VTE or any recent covid-19 exposure. She also drinks 3-4 beers nightly to help her sleep. No fever or chills. She also has HLP and was just started recently with statin. She takes ASA daily which she did take when she was having chest pain. PAST MEDICAL HISTORY Cardiovascular: HTN, Hyperlipidemia Pulmonary: COPD CENTRAL NERVOUS SYSTEM: Other (No pertinent history) GI: No pertinent hx Heme/Onc: No pertinent hx Hepatobiliary: No pertinent hx Psych: No pertinent hx Musculoskeletal: Osteoarthritis Rheumatologic: No pertinent hx Infectious disease: No pertinent hx ENT: Other (cataract) Renal/: No pertinent hx Endocrine: No pertinent hx Dermatology: No pertinent hx PAST SURGICAL HISTORY Past Surgical History: Cataract Removal, Other (PCI 2003) FAMILY HISTORY Family History: Coronary Artery Disease (brother with SCD in his 40s) SOCIAL HISTORY Social History 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 [employer] Smoke: 1 pack per day (>35 yrs) ALCOHOL: heavy (3-4 beers nightly) Drugs: None Lives: with Family (spouse) CURRENT MEDICATIONS CURRENT MEDICATIONS Current Medications Medications (Trade) Dose Ordered Sig/Dilip Route PRN Reason Start Time Stop Time Status Last Admin Dose Admin Potassium Chloride (Klor-Con) 20 meq 1X ONCE PO 07/20/20 18:45 07/20/20 18:46 DC 07/20/20 19:06 Enoxaparin Sodium (Lovenox 60mg Syringe) 46 mg 1X ONCE SQ 07/20/20 19:30 07/20/20 19:32 DC 07/20/20 20:36 Albuterol Sulfate (Ventolin Neb Soln) 2.5 mg PRN Q6HRS PRN NEB SHORTNESS OF BREATH 07/20/20 22:15 07/21/20 06:27 Nitroglycerin (Nitrostat) 0.4 mg PRN Q5MIN PRN SL CHEST PAIN 07/21/20 03:15 07/21/20 03:26 Acetaminophen (Tylenol) 650 mg PRN Q6HRS PRN PO MILD PAIN / TEMP > 100.3'F 07/21/20 03:15 07/21/20 07:12 DC 07/21/20 03:25 Aspirin (Aspirin Chewable) 81 mg DAILYWBKFT PO 07/21/20 08:00 07/21/20 09:28 Nicotine (Nicoderm Cq 14mg) 1 patch PRN DAILY PRN TD SMOKING CESSATION 07/21/20 09:30 07/21/20 09:48 ALLERGIES ALLERGIES: Coded Allergies: latex (Verified Allergy, Intermediate, Rash, 07/20/20) codeine (Verified Adverse Reaction, Intermediate, GI s/s,"sweating", 07/20/20) amlodipine (Verified Adverse Reaction, Mild, DIZZINESS, 07/20/20) ANOREXIA ROS Review of System 14 point ROS evaluated with pertinent positives noted per HPI PHYSICAL EXAM General: Alert, Oriented X3, Cooperative, No acute distress HEENT: Atraumatic, Mucous membr. moist/pink Lungs: Clear to auscultation, Normal air movement Heart: Regular rate (SR), Normal S1, Normal S2, No murmurs, Other (distant murmurs) Abdomen: Soft, No tenderness Extremities: No cyanosis, No edema Skin: No breakdown, No significant lesion Neuro: Normal speech, Sensation intact Psych/Mental Status: Mental status NL, Mood NL MUSCULOSKELETAL: Osteoarthritic changes both hands VITALS/I&O VITALS/I&O: Vital Signs Date Time Temp Pulse Resp B/P (MAP) Pulse Ox O2 Delivery O2 Flow Rate FiO2 07/21/20 07:00 98.8 84 22 118/79 (92) 93 Room Air 98.8 I & O 07/20/20 07/20/20 07/21/20 15:00 23:00 07:00 Intake Total 300 ml Balance 300 ml LABS Lab: Laboratory Tests Test 07/20/20 17:25 07/20/20 19:20 07/20/20 20:40 07/21/20 05:00 White Blood Count 15.0 x10^3/uL (4.0-11.0) H Red Blood Count 3.69 x10^6/uL (3.50-5.40) Hemoglobin 8.4 g/dL (12.0-15.5) L Hematocrit 27.1 % (36.0-47.0) L Mean Corpuscular Volume 73 fL (79-100) L Mean Corpuscular Hemoglobin 23 pg (25-35) L Mean Corpuscular Hemoglobin Concent 31 g/dL (31-37) Red Cell Distribution Width 18.2 % (11.5-14.5) H Platelet Count 653 x10^3/uL (140-400) H Neutrophils (%) (Auto) 85 % (31-73) H Lymphocytes (%) (Auto) 8 % (24-48) L Monocytes (%) (Auto) 7 % (0-9) Eosinophils (%) (Auto) 0 % (0-3) Basophils (%) (Auto) 0 % (0-3) Neutrophils # (Auto) 12.7 x10^3/uL (1.8-7.7) H Lymphocytes # (Auto) 1.2 x10^3/uL (1.0-4.8) Monocytes # (Auto) 1.0 x10^3/uL (0.0-1.1) Eosinophils # (Auto) 0.1 x10^3/uL (0.0-0.7) Basophils # (Auto) 0.1 x10^3/uL (0.0-0.2) Segmented Neutrophils % 89 % (35-66) H Lymphocytes % 5 % (24-48) L Monocytes % 6 % (0-10) Platelet Estimate Increased (ADEQUATE) Hypochromasia Mod Anisocytosis Slight Microcytosis Slight Prothrombin Time 14.5 SEC (11.7-14.0) H Prothrombin Time INR 1.2 (0.8-1.1) H Activated Partial Thromboplast Time 34 SEC (24-38) Sodium Level 138 mmol/L (136-145) Potassium Level 3.2 mmol/L (3.5-5.1) L Chloride Level 101 mmol/L (98-107) Carbon Dioxide Level 25 mmol/L (21-32) Anion Gap 12 (6-14) Blood Urea Nitrogen 7 mg/dL (7-20) Creatinine 0.7 mg/dL (0.6-1.0) Estimated GFR (Cockcroft-Gault) 85.1 BUN/Creatinine Ratio 10 (6-20) Glucose Level 150 mg/dL (70-99) H Calcium Level 8.0 mg/dL (8.5-10.1) L Magnesium Level 2.1 mg/dL (1.8-2.4) Total Bilirubin 0.2 mg/dL (0.2-1.0) Aspartate Amino Transferase (AST) 12 U/L (15-37) L Alanine Aminotransferase (ALT) 10 U/L (14-59) L Alkaline Phosphatase 83 U/L (46-116) Creatine Kinase 74 U/L (26-192) Creatine Kinase MB (Mass) 4.5 ng/mL (0.0-3.6) H Creatine Kinase MB Relative Index % (0-4) Troponin I Quantitative 0.912 ng/mL (0.000-0.055) 7.477 ng/mL (0.000-0.055) 10.003 ng/mL (0.000-0.055) Total Protein 7.1 g/dL (6.4-8.2) Albumin 2.2 g/dL (3.4-5.0) L Albumin/Globulin Ratio 0.4 (1.0-1.7) L Lactic Acid Level 1.3 mmol/L (0.4-2.0) Test 07/21/20 07:20 07/21/20 08:00 Sodium Level 144 mmol/L (136-145) Potassium Level 4.3 mmol/L (3.5-5.1) # Chloride Level 107 mmol/L (98-107) Carbon Dioxide Level 28 mmol/L (21-32) Anion Gap 9 (6-14) Blood Urea Nitrogen 7 mg/dL (7-20) Creatinine 0.7 mg/dL (0.6-1.0) Estimated GFR (Cockcroft-Gault) 85.1 Glucose Level 94 mg/dL (70-99) Calcium Level 8.4 mg/dL (8.5-10.1) L Troponin I Quantitative 8.311 ng/mL (0.000-0.055) Triglycerides Level 60 mg/dL (0-150) Cholesterol Level 107 mg/dL (0-200) LDL Cholesterol, Calculated 53 mg/dL (0-100) VLDL Cholesterol, Calculated 12 mg/dL (0-40) Non-HDL Cholesterol Calculated 65 mg/dL (0-129) HDL Cholesterol 42 mg/dL (40-60) Cholesterol/HDL Ratio 2.5 SARS-CoV-2 Antigen (Rapid) Negative (NEGATIVE) Laboratory Tests 07/20/20 17:25 Laboratory Tests 07/20/20 17:25 07/21/20 07:20 ASSESSMENT/PLAN ASSESSMENT/PLAN 1. NSTEMI: ACS 2. COPD with continued tobaccoism: per PCP 3. CAD: last PCI 2003 4. Family hx of premature CAD with SCD: brother 5. ETOH misuse: 3-4 beers nightly for sleep 6. HLP: recently started on statin. on goal 7. HTN: controlled 8. Microcytic hypochromic anemia 9. suspect reactive thrombocytosis and leukocytosis Recommendations 1. Rapid covid-19 neg. LH, risks and benefits discussed and agreeable to proceed 2. TSH, UA and TTE 3. ASA. Received lovenox last night. 4. smoking cessationa dn curbing ETOH use. 5. GDMT per [facility] findings. NAHID NORMAN MD 07/21/203: CARDIAC CONSULT ASSESSMENT/PLAN ASSESSMENT/PLAN Patient seen and examined. Agree with above nurse practitioner note. 59-year-old woman who came in with atypical symptoms. She was found to have a elevated troponin. Chest x-ray concerning for pneumonia versus mass Left heart cath revealed three-vessel coronary artery disease with left main involvement. Due to insurance issues patient cannot be treated in our institution. Given her age she should be evaluated also at a center which can support her with an LVAD or an ECMO in the event there are complications with high risk PCI which is likely the best option in this current setting given her pneumonia and high risk for bypass surgery. This was explained to the patient and will likely plan for transfer to a tertiary Medical Center in the next 24 hours. Continue Lovenox therapy for her non-STEMI. TERRI JERONIMO MANUFACTURING PROJECT ENGINEER Jul 21, 2020 10:11 NAHID NORMAN MD Jul 21, 2020 22:23
[2020-07-21] MEDS ORDERED: IV 1/2 NORMAL SALINE 1,000 ML IV ONE (10:15)
[2020-07-21] MEDS ORDERED: LIDOCAINE 1% PF 2 ML VIAL. ONE (10:58)
[2020-07-21] MEDS ORDERED: IODIXANOL 320 MG/ML 100 ML VIAL. ONE (10:59)
[2020-07-21] MEDS ORDERED: fentaNYL PF VIAL 100 MCG/2 ML VIAL ONE (11:14)
[2020-07-21] MEDS ORDERED: NITROGLYCERIN 200 MCG/2 ML SYRINGE FOR CATH/VASC LAB. ONE (11:15)
[2020-07-21] MEDS ORDERED: VERAPAMIL 5 MG/2 ML VIAL. ONE (11:15)
[2020-07-21] MEDS ORDERED: HEPARIN for IV BOLUS 10,000 UNIT/10 ML VIAL. ONE (11:15)
[2020-07-21] MEDS ORDERED: MIDAZOLAM HCL/PF 2 MG/2 ML VIAL. ONE ×2 (11:15→11:37)
[2020-07-21] MEDS ORDERED: fentaNYL PF VIAL 100 MCG/2 ML VIAL IV ONE (12:00)
[2020-07-21] MEDS ORDERED: VERAPAMIL 5 MG/2 ML VIAL. IART ONE (12:00)
[2020-07-21] MEDS ORDERED: MIDAZOLAM HCL/PF 2 MG/2 ML VIAL. IV ONE (12:00)
[2020-07-21] MEDS ORDERED: HEPARIN for IV BOLUS 10,000 UNIT/10 ML VIAL. IART ONE (12:00)
[2020-07-21] MEDS ORDERED: IODIXANOL 320 MG/ML 100 ML VIAL. IART ONE (12:00)
[2020-07-21] MEDS ORDERED: NITROGLYCERIN 200 MCG/2 ML SYRINGE FOR CATH/VASC LAB. IART ONE (12:00)
[2020-07-21] MEDS ORDERED: LIDOCAINE 1% PF 2 ML VIAL. INJ ONE (12:00)
--- NOTE | 2020-07-21 12:17 | PDOC ---
[employer] PROGRESS NOTE Date of Service DOS: DATE: 07/21/20 TIME: 11:46 Chief Complaint Chief Complaint Acute chest pain concerning for non-STEMI Left lung consolidation concerning for neoplasm Microcytic anemia concerning for BRYANT Failure to thrive, low BMI 16.5 Cardiology evaluation pending left heart cath CT chest to rule out malignancy FOBT, pending ferritin level Lovenox for DVT prophylaxis Protonix GI prophylaxis ADA diet Full code Discussed with RN and SW Disposition pending left heart cath Surrogate decision maker is Julien Farmer History of Present Illness History of Present Illness 07/21/2020 No acute events overnight. Patient is chest pain-free at this time however her troponins increased from 0.9 to10.0. Plan for left heart cath today. Patient's chart, labs, images were reviewed and discussed with RN 59-year-old female who presented to the Emergency Room with chest pain. Her troponin was a little high at 0.92. She has 2 previous old stents. I discussed the case with Emergency Room physician. We are going to admit the patient and consult Cardiology. Vitals/I&O Vitals/I&O: Vital Signs Date Time Temp Pulse Resp B/P (MAP) Pulse Ox O2 Delivery O2 Flow Rate FiO2 07/21/20 10:52 98.3 92 20 125/82 (96) 95 Room Air 98.3 I & O 07/20/20 07/20/20 07/21/20 15:00 23:00 07:00 Intake Total 300 ml Balance 300 ml Physical Exam General: Alert, Oriented X3, Cooperative, No acute distress Heart: Regular rate (SR), Normal S1, Normal S2, No murmurs, Other (distant murmurs) Abdomen: Soft, No tenderness Extremities: No cyanosis, No edema Skin: No breakdown, No significant lesion Labs Labs: Laboratory Tests Test 07/20/20 17:25 07/20/20 19:20 07/20/20 20:40 07/21/20 05:00 White Blood Count 15.0 x10^3/uL (4.0-11.0) Red Blood Count 3.69 x10^6/uL (3.50-5.40) Hemoglobin 8.4 g/dL (12.0-15.5) Hematocrit 27.1 % (36.0-47.0) Mean Corpuscular Volume 73 fL (79-100) Mean Corpuscular Hemoglobin 23 pg (25-35) Mean Corpuscular Hemoglobin Concent 31 g/dL (31-37) Red Cell Distribution Width 18.2 % (11.5-14.5) Platelet Count 653 x10^3/uL (140-400) Neutrophils (%) (Auto) 85 % (31-73) Lymphocytes (%) (Auto) 8 % (24-48) Monocytes (%) (Auto) 7 % (0-9) Eosinophils (%) (Auto) 0 % (0-3) Basophils (%) (Auto) 0 % (0-3) Neutrophils # (Auto) 12.7 x10^3/uL (1.8-7.7) Lymphocytes # (Auto) 1.2 x10^3/uL (1.0-4.8) Monocytes # (Auto) 1.0 x10^3/uL (0.0-1.1) Eosinophils # (Auto) 0.1 x10^3/uL (0.0-0.7) Basophils # (Auto) 0.1 x10^3/uL (0.0-0.2) Segmented Neutrophils % 89 % (35-66) Lymphocytes % 5 % (24-48) Monocytes % 6 % (0-10) Platelet Estimate Increased (ADEQUATE) Hypochromasia Mod Anisocytosis Slight Microcytosis Slight Prothrombin Time 14.5 SEC (11.7-14.0) Prothromb Time International Ratio 1.2 (0.8-1.1) Activated Partial Thromboplast Time 34 SEC (24-38) Sodium Level 138 mmol/L (136-145) Potassium Level 3.2 mmol/L (3.5-5.1) Chloride Level 101 mmol/L (98-107) Carbon Dioxide Level 25 mmol/L (21-32) Anion Gap 12 (6-14) Blood Urea Nitrogen 7 mg/dL (7-20) Creatinine 0.7 mg/dL (0.6-1.0) Estimated GFR (Cockcroft-Gault) 85.1 BUN/Creatinine Ratio 10 (6-20) Glucose Level 150 mg/dL (70-99) Calcium Level 8.0 mg/dL (8.5-10.1) Magnesium Level 2.1 mg/dL (1.8-2.4) Total Bilirubin 0.2 mg/dL (0.2-1.0) Aspartate Amino Transf (AST/SGOT) 12 U/L (15-37) Alanine Aminotransferase (ALT/SGPT) 10 U/L (14-59) Alkaline Phosphatase 83 U/L (46-116) Creatine Kinase 74 U/L (26-192) Creatine Kinase MB (Mass) 4.5 ng/mL (0.0-3.6) Creatine Kinase MB Relative Index % (0-4) Troponin I Quantitative 0.912 ng/mL (0.000-0.055) 7.477 ng/mL (0.000-0.055) 10.003 ng/mL (0.000-0.055) Total Protein 7.1 g/dL (6.4-8.2) Albumin 2.2 g/dL (3.4-5.0) Albumin/Globulin Ratio 0.4 (1.0-1.7) Lactic Acid Level 1.3 mmol/L (0.4-2.0) Test 07/21/20 07:20 07/21/20 08:00 07/21/20 09:45 Sodium Level 144 mmol/L (136-145) Potassium Level 4.3 mmol/L (3.5-5.1) Chloride Level 107 mmol/L (98-107) Carbon Dioxide Level 28 mmol/L (21-32) Anion Gap 9 (6-14) Blood Urea Nitrogen 7 mg/dL (7-20) Creatinine 0.7 mg/dL (0.6-1.0) Estimated GFR (Cockcroft-Gault) 85.1 Glucose Level 94 mg/dL (70-99) Calcium Level 8.4 mg/dL (8.5-10.1) Troponin I Quantitative 8.311 ng/mL (0.000-0.055) 7.601 ng/mL (0.000-0.055) Triglycerides Level 60 mg/dL (0-150) Cholesterol Level 107 mg/dL (0-200) LDL Cholesterol, Calculated 53 mg/dL (0-100) VLDL Cholesterol, Calculated 12 mg/dL (0-40) Non-HDL Cholesterol Calculated 65 mg/dL (0-129) HDL Cholesterol 42 mg/dL (40-60) Cholesterol/HDL Ratio 2.5 SARS-CoV-2 Antigen (Rapid) Negative (NEGATIVE) Thyroid Stimulating Hormone (TSH) 0.426 uIU/mL (0.358-3.74) Assessment and Plan Assessmemt and Plan Problems Medical Problems: (1) Smoking addiction Status: Acute Comment Review of Relevant I have reviewed the following items joao (where applicable) has been applied. Medications: Current Medications Medications (Trade) Dose Ordered Sig/Dilip Route PRN Reason Start Time Stop Time Status Last Admin Dose Admin Potassium Chloride (Klor-Con) 20 meq 1X ONCE PO 07/20/20 18:45 07/20/20 18:46 DC 07/20/20 19:06 Enoxaparin Sodium (Lovenox 60mg Syringe) 46 mg 1X ONCE SQ 07/20/20 19:30 07/20/20 19:32 DC 07/20/20 20:36 Albuterol Sulfate (Ventolin Neb Soln) 2.5 mg PRN Q6HRS PRN NEB SHORTNESS OF BREATH 07/20/20 22:15 07/21/20 06:27 Nitroglycerin (Nitrostat) 0.4 mg PRN Q5MIN PRN SL CHEST PAIN 07/21/20 03:15 07/21/20 03:26 Acetaminophen (Tylenol) 650 mg PRN Q6HRS PRN PO MILD PAIN / TEMP > 100.3'F 07/21/20 03:15 07/21/20 07:12 DC 07/21/20 03:25 Aspirin (Aspirin Chewable) 81 mg DAILYWBKFT PO 07/21/20 08:00 07/21/20 09:28 Nicotine (Nicoderm Cq 14mg) 1 patch PRN DAILY PRN TD SMOKING CESSATION 07/21/20 09:30 07/21/20 09:48 Sodium Chloride 1,000 ml @ 75 mls/hr 1X ONCE IV 07/21/20 10:15 07/21/20 23:34 07/21/20 10:43 Justifications for Admission Other Justification CASS CLEMENTE MD Jul 21, 2020 12:17
--- NOTE | 2020-07-21 12:28 | NUR ---
SS following for discharge planning. SS reviewed pt chart and discussed with pt RN. Pt is from home with spouse and room air. COVID19 negative. Pt had heart cath today. SS will continue to follow for discharge planning.
[2020-07-21 12:39] LABS: BILIRUBIN,URINE NEGATIVE (NEG); CLARITY,URINE CLEAR; COLOR,URINE YELLOW; NITRITE,URINE NEGATIVE (NEG); PH,URINE 7.5 (<5.0-8.0); PROTEIN,URINE NEGATIVE (NEG-TRACE); UROBILINOGEN,URINE 0.2 mg/dL (0.2 mg/dL)
[2020-07-21 12:46] LABS: BACTERIA,URINE FEW /HPF (0-FEW); RBC,URINE 0 /HPF (0-2)
--- NOTE | 2020-07-21 13:26 | CARD ---
MR#: [id number] Date of Study: 07/21/2020 Ordering Physician: NAHID NORMAN, Referring Physician: NAHID NORMAN, Tech: NOLA ABURTO RTR APPROVED REPORT Technologist: NOLA ABURTO RTR Nurse: SUMIT BHATTI RN Procedure(s) performed: MODERATE SEDATION TIME: 39 MINUTES FLUORO TIME: 4.1 MIN DOSE: 33.5 GYCM2 CONTRAST: 73CC VISI LHC, Coronary angiography HISTORY : The patient is a 59 year-old male with a history of . INDICATION The indication(s) include : non-STEMI . [facility] Clinical Frailty Scale [facility] Clinical Frailty Scale: Mildly Frail Heart Failure Heart Failure: Yes If Yes, Newly Diagnosed: Yes If Yes, HF Type: Diastolic If Yes, NYHA Class: Class II PROCEDURE NARRATIVE Clinical information: 59 y.o woman here for NSTEMI and EKG changes. Informed consent: Written informed consent was obtained from the patient after adequate discussion of the risks and nila efits of the procedure. Procedure details: ACCESS: The right wrist was prepped and draped in usual sterile fashion. Under 1% lidocaine local anesthesia a 6 [place] Terumo sheath was placed in the right radial artery via the Seldinger technique. DIAGNOSTIC ANGIOGRAPHY: Right and left coronary arteries were engaged with a 6 [place] TIG catheter. Diagnostic angiography i n multiple views were obtained. Next, the catheter was placed in the left ventricle and a LVEDP was measured. All catheters were exchanged over J-tip guidewire. FINDINGS: ======= Aorta: 110/80 LVEDP: 18 mmHg Left ventriculogram: Deferred Coronary angiography: LM: Large caliber vessel with a mid body/distal 80% eccentric stenosis. LAD: Large caliber vessel with a proximal 50% stenosis. D1: Moderate caliber vessel with normal angiographic appearance LCX: Moderate caliber vessel with a patent mid stent and distal 50% stenosis. LPL1: Moderate caliber vessel with mild luminal irregularities. RCA: Small to moderate sized vessel with a proximal 50% stenosis a distal 70% stenosis. RPDA: Small caliber vessel with mild luminal irregularities. CLOSURE: At case completion the right radial sheath was removed and a Terumo radial band was applied with 11 m L of air. Hemostasis was achieved. COMPLICATIONS: No acute complications noted Conclusion 1. Mildly elevated left sided filling pressures. 2. Three vessel coronary disease with LM involvement. Recommendations 1. Continue w/u for pulmonary issues and CT surgery consultation for evaluation of LM disease and hazel g mass. 2. Depending on further evaluation, consider high risk PCI versus CABG 3. Continue hep gtt. Signed by : Nahid Norman, Electronically Approved : 07/21/2020 13:26:40
--- NOTE | 2020-07-21 13:42 | PDOC ---
PULMONARY PROGRESS NOTES DATE: 07/21/20 TIME: 13:41 Vitals Vital Signs Date Time Temp Pulse Resp B/P (MAP) Pulse Ox O2 Delivery O2 Flow Rate FiO2 07/21/20 12:26 Room Air 07/21/20 12:03 78 16 100 07/21/20 11:56 2.0 07/21/20 10:52 98.3 125/82 (96) 98.3 Labs Laboratory Tests Test 07/20/20 17:25 07/20/20 19:20 07/20/20 20:40 07/21/20 05:00 White Blood Count 15.0 x10^3/uL (4.0-11.0) Red Blood Count 3.69 x10^6/uL (3.50-5.40) Hemoglobin 8.4 g/dL (12.0-15.5) Hematocrit 27.1 % (36.0-47.0) Mean Corpuscular Volume 73 fL (79-100) Mean Corpuscular Hemoglobin 23 pg (25-35) Mean Corpuscular Hemoglobin Concent 31 g/dL (31-37) Red Cell Distribution Width 18.2 % (11.5-14.5) Platelet Count 653 x10^3/uL (140-400) Neutrophils (%) (Auto) 85 % (31-73) Lymphocytes (%) (Auto) 8 % (24-48) Monocytes (%) (Auto) 7 % (0-9) Eosinophils (%) (Auto) 0 % (0-3) Basophils (%) (Auto) 0 % (0-3) Neutrophils # (Auto) 12.7 x10^3/uL (1.8-7.7) Lymphocytes # (Auto) 1.2 x10^3/uL (1.0-4.8) Monocytes # (Auto) 1.0 x10^3/uL (0.0-1.1) Eosinophils # (Auto) 0.1 x10^3/uL (0.0-0.7) Basophils # (Auto) 0.1 x10^3/uL (0.0-0.2) Segmented Neutrophils % 89 % (35-66) Lymphocytes % 5 % (24-48) Monocytes % 6 % (0-10) Platelet Estimate Increased (ADEQUATE) Hypochromasia Mod Anisocytosis Slight Microcytosis Slight Prothrombin Time 14.5 SEC (11.7-14.0) Prothromb Time International Ratio 1.2 (0.8-1.1) Activated Partial Thromboplast Time 34 SEC (24-38) Sodium Level 138 mmol/L (136-145) Potassium Level 3.2 mmol/L (3.5-5.1) Chloride Level 101 mmol/L (98-107) Carbon Dioxide Level 25 mmol/L (21-32) Anion Gap 12 (6-14) Blood Urea Nitrogen 7 mg/dL (7-20) Creatinine 0.7 mg/dL (0.6-1.0) Estimated GFR (Cockcroft-Gault) 85.1 BUN/Creatinine Ratio 10 (6-20) Glucose Level 150 mg/dL (70-99) Calcium Level 8.0 mg/dL (8.5-10.1) Magnesium Level 2.1 mg/dL (1.8-2.4) Total Bilirubin 0.2 mg/dL (0.2-1.0) Aspartate Amino Transf (AST/SGOT) 12 U/L (15-37) Alanine Aminotransferase (ALT/SGPT) 10 U/L (14-59) Alkaline Phosphatase 83 U/L (46-116) Creatine Kinase 74 U/L (26-192) Creatine Kinase MB (Mass) 4.5 ng/mL (0.0-3.6) Creatine Kinase MB Relative Index % (0-4) Troponin I Quantitative 0.912 ng/mL (0.000-0.055) 7.477 ng/mL (0.000-0.055) 10.003 ng/mL (0.000-0.055) Total Protein 7.1 g/dL (6.4-8.2) Albumin 2.2 g/dL (3.4-5.0) Albumin/Globulin Ratio 0.4 (1.0-1.7) Lactic Acid Level 1.3 mmol/L (0.4-2.0) Test 07/21/20 07:20 07/21/20 08:00 07/21/20 09:45 07/21/20 12:20 Sodium Level 144 mmol/L (136-145) Potassium Level 4.3 mmol/L (3.5-5.1) Chloride Level 107 mmol/L (98-107) Carbon Dioxide Level 28 mmol/L (21-32) Anion Gap 9 (6-14) Blood Urea Nitrogen 7 mg/dL (7-20) Creatinine 0.7 mg/dL (0.6-1.0) Estimated GFR (Cockcroft-Gault) 85.1 Glucose Level 94 mg/dL (70-99) Calcium Level 8.4 mg/dL (8.5-10.1) Troponin I Quantitative 8.311 ng/mL (0.000-0.055) 7.601 ng/mL (0.000-0.055) Triglycerides Level 60 mg/dL (0-150) Cholesterol Level 107 mg/dL (0-200) LDL Cholesterol, Calculated 53 mg/dL (0-100) VLDL Cholesterol, Calculated 12 mg/dL (0-40) Non-HDL Cholesterol Calculated 65 mg/dL (0-129) HDL Cholesterol 42 mg/dL (40-60) Cholesterol/HDL Ratio 2.5 SARS-CoV-2 Antigen (Rapid) Negative (NEGATIVE) Ferritin 124 ng/mL (8-252) Thyroid Stimulating Hormone (TSH) 0.426 uIU/mL (0.358-3.74) Urine Collection Type Unknown Urine Color Yellow Urine Clarity Clear Urine pH 7.5 (<5.0-8.0) Urine Specific [place] 1.010 (1.000-1.030) Urine Protein Negative mg/dL (NEG-TRACE) Urine Glucose (UA) Negative mg/dL (NEG) Urine Ketones (Stick) Negative mg/dL (NEG) Urine Blood Negative (NEG) Urine Nitrite Negative (NEG) Urine Bilirubin Negative (NEG) Urine Urobilinogen Dipstick 0.2 mg/dL (0.2 mg/dL) Urine Leukocyte Esterase Small (NEG) Urine RBC 0 /HPF (0-2) Urine WBC 1-4 /HPF (0-4) Urine Squamous Epithelial Cells Many /LPF Urine Bacteria Few /HPF (0-FEW) Laboratory Tests Test 07/20/20 17:25 07/20/20 19:20 07/20/20 20:40 07/21/20 05:00 White Blood Count 15.0 x10^3/uL (4.0-11.0) Red Blood Count 3.69 x10^6/uL (3.50-5.40) Hemoglobin 8.4 g/dL (12.0-15.5) Hematocrit 27.1 % (36.0-47.0) Mean Corpuscular Volume 73 fL (79-100) Mean Corpuscular Hemoglobin 23 pg (25-35) Mean Corpuscular Hemoglobin Concent 31 g/dL (31-37) Red Cell Distribution Width 18.2 % (11.5-14.5) Platelet Count 653 x10^3/uL (140-400) Neutrophils (%) (Auto) 85 % (31-73) Lymphocytes (%) (Auto) 8 % (24-48) Monocytes (%) (Auto) 7 % (0-9) Eosinophils (%) (Auto) 0 % (0-3) Basophils (%) (Auto) 0 % (0-3) Neutrophils # (Auto) 12.7 x10^3/uL (1.8-7.7) Lymphocytes # (Auto) 1.2 x10^3/uL (1.0-4.8) Monocytes # (Auto) 1.0 x10^3/uL (0.0-1.1) Eosinophils # (Auto) 0.1 x10^3/uL (0.0-0.7) Basophils # (Auto) 0.1 x10^3/uL (0.0-0.2) Segmented Neutrophils % 89 % (35-66) Lymphocytes % 5 % (24-48) Monocytes % 6 % (0-10) Platelet Estimate Increased (ADEQUATE) Hypochromasia Mod Anisocytosis Slight Microcytosis Slight Prothrombin Time 14.5 SEC (11.7-14.0) Prothromb Time International Ratio 1.2 (0.8-1.1) Activated Partial Thromboplast Time 34 SEC (24-38) Sodium Level 138 mmol/L (136-145) Potassium Level 3.2 mmol/L (3.5-5.1) Chloride Level 101 mmol/L (98-107) Carbon Dioxide Level 25 mmol/L (21-32) Anion Gap 12 (6-14) Blood Urea Nitrogen 7 mg/dL (7-20) Creatinine 0.7 mg/dL (0.6-1.0) Estimated GFR (Cockcroft-Gault) 85.1 BUN/Creatinine Ratio 10 (6-20) Glucose Level 150 mg/dL (70-99) Calcium Level 8.0 mg/dL (8.5-10.1) Magnesium Level 2.1 mg/dL (1.8-2.4) Total Bilirubin 0.2 mg/dL (0.2-1.0) Aspartate Amino Transf (AST/SGOT) 12 U/L (15-37) Alanine Aminotransferase (ALT/SGPT) 10 U/L (14-59) Alkaline Phosphatase 83 U/L (46-116) Creatine Kinase 74 U/L (26-192) Creatine Kinase MB (Mass) 4.5 ng/mL (0.0-3.6) Creatine Kinase MB Relative Index % (0-4) Troponin I Quantitative 0.912 ng/mL (0.000-0.055) 7.477 ng/mL (0.000-0.055) 10.003 ng/mL (0.000-0.055) Total Protein 7.1 g/dL (6.4-8.2) Albumin 2.2 g/dL (3.4-5.0) Albumin/Globulin Ratio 0.4 (1.0-1.7) Lactic Acid Level 1.3 mmol/L (0.4-2.0) Test 07/21/20 07:20 07/21/20 08:00 07/21/20 09:45 07/21/20 12:20 Sodium Level 144 mmol/L (136-145) Potassium Level 4.3 mmol/L (3.5-5.1) Chloride Level 107 mmol/L (98-107) Carbon Dioxide Level 28 mmol/L (21-32) Anion Gap 9 (6-14) Blood Urea Nitrogen 7 mg/dL (7-20) Creatinine 0.7 mg/dL (0.6-1.0) Estimated GFR (Cockcroft-Gault) 85.1 Glucose Level 94 mg/dL (70-99) Calcium Level 8.4 mg/dL (8.5-10.1) Troponin I Quantitative 8.311 ng/mL (0.000-0.055) 7.601 ng/mL (0.000-0.055) Triglycerides Level 60 mg/dL (0-150) Cholesterol Level 107 mg/dL (0-200) LDL Cholesterol, Calculated 53 mg/dL (0-100) VLDL Cholesterol, Calculated 12 mg/dL (0-40) Non-HDL Cholesterol Calculated 65 mg/dL (0-129) HDL Cholesterol 42 mg/dL (40-60) Cholesterol/HDL Ratio 2.5 SARS-CoV-2 Antigen (Rapid) Negative (NEGATIVE) Ferritin 124 ng/mL (8-252) Thyroid Stimulating Hormone (TSH) 0.426 uIU/mL (0.358-3.74) Urine Collection Type Unknown Urine Color Yellow Urine Clarity Clear Urine pH 7.5 (<5.0-8.0) Urine Specific [place] 1.010 (1.000-1.030) Urine Protein Negative mg/dL (NEG-TRACE) Urine Glucose (UA) Negative mg/dL (NEG) Urine Ketones (Stick) Negative mg/dL (NEG) Urine Blood Negative (NEG) Urine Nitrite Negative (NEG) Urine Bilirubin Negative (NEG) Urine Urobilinogen Dipstick 0.2 mg/dL (0.2 mg/dL) Urine Leukocyte Esterase Small (NEG) Urine RBC 0 /HPF (0-2) Urine WBC 1-4 /HPF (0-4) Urine Squamous Epithelial Cells Many /LPF Urine Bacteria Few /HPF (0-FEW) Medications Active Scripts Medications Dose Route/Sig Max Daily Dose Days Date Category Atorvastatin Calcium 20 Mg Tablet 20 Tab PO QHS 07/21/20 Reported Amlodipine Besylate 5 Mg Tablet 5 Tab PO DAILY 07/21/20 Reported Aspirin 325 Mg Tablet 325 Mg PO DAILY 07/20/20 Reported Lisinopril 20 Mg Tablet 20 Mg PO DAILY 07/20/20 Reported Ventolin Hfa Inhaler (Albuterol Sulfate) 18 Gm Hfa.aer.ad 2 Puff INH Q4HRS 05/14/17 Rx Impression . Full consult dictated Discussed with Dr. Pham Abnormal x-ray, will obtain CT chest Treat for pneumonia for now, rule out malignancy. KRYSTEN PERALTA MD Jul 21, 2020 13:42
--- NOTE | 2020-07-21 16:20 | RAD ---
CT chest without contrast PQRS statement: CT scans at this facility use dose reduction including either automated exposure cont rol, iterative reconstructions, and /or weight based radiation dosing via mA and kV modification when appropriate to reduce radiation dose to as low as reasonably achievable. HISTORY: Chest pain. Concern for Malignancy. COMPARISON: Chest x-ray July 20, 2020 and priors. FINDINGS: Densities within the renal upper pole is could be excreted contrast versus calculi a somewh at obscured by motion artifact by the patient. Tiny left pleural effusion along the posterior diaphra gm. Heart size normal. Extensive calcified plaque coronary arteries and thoracic aorta. Pulmonary ves sels and esophagus are unremarkable. No enlarged adenopathy in the chest. Calcified granulomas in the chest are present. There is consolidated opacity with air bronchograms at the left upper lobe election judge ior segment adjacent of the fissure, the posterior aspect of the lingula, and of the left lower lobe superior segment with some extension posteriorly towards the posterior and lateral basal segments. Th ere is mild volume loss of the lingula and left lower lobe. There are some areas of cavitation within the opacity at the left upper lobe posterior segment left lower lobe superior segment. Right lung cl ear. Bones unremarkable. IMPRESSION: 1. Consolidated opacity of the left upper lobe posterior segment, lingula and left lower lobe from th e superior segment to the lateral and posterior basal segments, and mild volume loss of the left lowe r lobe. There are some areas of cavitation within the opacity. This could represent a necrotizing pne umonia. Extensive areas of pulmonary infarction with areas of cavitation would also be a possibility. A lung malignancy with areas of cavitation involving more than lobe laterally is also a possibility. 2. Small left pleural effusion. Electronically signed by: Keven Lilly MD (07/21/2020 4:18 PM) [facility]
--- NOTE | 2020-07-21 19:33 | CONS ---
DATE OF CONSULTATION: 07/21/2020 ATTENDING PHYSICIAN: Dr. Harmon. REASON FOR CONSULTATION: The patient is seen in pulmonary consultation at the request of Dr. Pham for abnormal x-ray. HISTORY OF PRESENT ILLNESS: The patient is a 59 that presented with acute onset of chest pain. She states that this was similar to her previous myocardial infarction in 2003. She also had headache and emesis and had some diaphoresis. No fever or chills. No hemoptysis. She does smoke. She has not seen a primary care doctor for quite some time. Last time she had a chest x-ray here at [facility] that was in 2017. She had an x-ray yesterday as part of her workup revealing a pretty condensed area in the left lung. The patient denies any fever or chills. No hemoptysis. No COVID-19 exposure. She actually had her COVID vaccine on the 3rd of last month. She was scheduled to get re-vaccinated tomorrow. She underwent cardiac catheterization and was found to have 3-vessel coronary artery disease. She is currently being considered for the possibility of revascularization. PAST MEDICAL HISTORY: Previous myocardial infarction, had a cardiac catheterization in 2003, underlying hypertension and hyperlipidemia. She has never been told that she has had COPD, but she utilizes albuterol on a p.r.n. basis. She continues to smoke. She has not had any recent acute exacerbations of COPD. PAST SURGICAL HISTORY: Previous cardiac catheterization. ALLERGIES: AMLODIPINE, CODEINE, AND LATEX. SOCIAL HISTORY: She smokes. FAMILY HISTORY: Coronary artery disease. 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 She smokes more than 1 pack of cigarettes a day and drinks beer on a regular basis. REVIEW OF SYSTEMS: As indicated above, otherwise other 10-point system was reviewed and negative. She does admit to losing about 11 pounds, she attributed to not eating properly. This is occurring over the last 6 months. Otherwise, as indicated in the history of present illness. PHYSICAL EXAMINATION: VITAL SIGNS: Stable. O2 saturation greater than 92%. HEENT: Eyes: The sclerae were nonicteric. NECK: Jugular venous distention was not elevated. No lymphadenopathy. CHEST: Full expansion. LUNGS: Increased breath sounds on the left lung with E to A change. CARDIOVASCULAR: Regular rate and rhythm with S1, S2, no S3. ABDOMEN: Soft, nontender and nondistended. EXTREMITIES: No clubbing, cyanosis or edema. NEUROLOGICAL: The patient was awake, alert and following commands. A detailed neuro exam was not performed. LABORATORY DATA: Serology was reviewed for SARS-CoV-2 rapid was negative. UA was noted. Electrolytes were noted. BUN and creatinine were noted. Troponin was markedly elevated. White count was elevated. She did have a left shift. Chest x-ray as indicated above. IMPRESSION: 1. Abnormal x-ray compatible with left lung consolidation, suspect this may be pneumonia, with that being said it is certainly possible that she has underlying lung malignancy. 2. Chest pain, status post cardiac catheterization, patient ruled in for myocardial infarction and she was found to have severe 3-vessel coronary artery disease. 3. Hyperlipidemia. 4. Hypertension. 5. Chronic obstructive pulmonary disease. 6. Tobacco dependent. 7. Hypertension. Once again, I think that this finding on the x-ray is compatible with pneumonia, with that being said it is certainly that she may have a malignancy. At this juncture, I would treat her for pneumonia. She does have an elevated white count, with a left shift. With that being said, she did not present with fever, chills and productive cough. Her main presentation was compatible with a non-ST segment elevation myocardial infarction. PLAN: 1. IV antibiotics. 2. CT chest. 3. Repeat CT in 6 weeks. 4. Follow Cardiology input. 5. Thoracic Surgery has been consulted. 6. The patient instructed on the importance of tobacco cessation. I do appreciate the privilege in sharing in this patient's care. KRYSTEN PERALTA MD DR: JAJA/dakota JOB#: [id number] / [id number]
--- NOTE | 2020-07-21 20:32 | NUR ---
Assessment completed vss poc explained pt denied pain will resume care and continue to monitor pt. Call light in reach.
[2020-07-21] MEDS ORDERED: ATORVASTATIN CALCIUM 40 MG TABLET. PO SCH (21:00)
[2020-07-22 02:43] VITALS: BP 125/62
[2020-07-22 06:59] LABS: BASO # 0.2 x10^3/uL (0.0-0.2); BASO % 1 % (0-3); EOS # 0.1 x10^3/uL (0.0-0.7); EOS % 0 % (0-3); HEMATOCRIT 26.7 % (36.0-47.0); HEMOGLOBIN 8.3 g/dL (12.0-15.5); LYMPH # 1.1 x10^3/uL (1.0-4.8); LYMPH % 9 % (24-48); MEAN CORPUSCULAR HEMOGLOBIN 23 pg (25-35); MEAN CORPUSCULAR HGB CONC 31 g/dL (31-37); MEAN CORPUSCULAR VOLUME 73 fL (79-100); MONO # 1.1 x10^3/uL (0.0-1.1); MONO % 9 % (0-9); NEUT # 10.4 x10^3/uL (1.8-7.7); NEUT % 81 % (31-73); PLATELET COUNT 595 x10^3/uL (140-400); RED BLOOD COUNT 3.65 x10^6/uL (3.50-5.40); RED CELL DISTRIBUTION WIDTH 17.8 % (11.5-14.5); WHITE BLOOD COUNT 12.8 x10^3/uL (4.0-11.0)
[2020-07-22 07:00] VITALS: BP 130/60
[2020-07-22] MEDS ORDERED: VANCOMYCIN PER PHARMACY MC PRN (07:45)
[2020-07-22] MEDS ORDERED: CEFEPIME HCL IV Push 1 GM VIAL. IVP SCH (08:00)
[2020-07-22] MEDS ORDERED: VANCOMYCIN 1.25 GM in IV NORMAL SALINE 250ML 250 ML IV ONE (08:00)
[2020-07-22] MEDS: ASPIRIN CHEWABLE 81 MG TABLET. PO SCH (09:03)
--- NOTE | 2020-07-22 09:22 | NUR ---
Pharmacy Vancomycin Dosing Note S:Consulted to monitor and dose vancomycin started 07/22/20. O:SHAHRAM ESPINO is a 59 year old F with Pneumonia. Height: 5 feet, 6 inches Weight: 50.3 kg [place] Body Weight: 59.30 Adjusted Body Weight: 55.70 Dosing Weight: Actual Other Antibiotics: cefepime metronidazole LABS: Last BUN: 7 Last Creatinine: 0.7 Creatinine Clearance: 67 mL/min Last WBC: 12.8 Last Procalcitonin: -- Tmax (past 24 hours): 99.5 Microbiology: 07/20: blood cx: NGTD I/O: 1120/ 1999 Last dose given 07/22/20 at 0904 Vancomycin Dosing: Loading Dose: 1250 mg x1 Dosing Weight: Actual Target Trough: 10-20 A: Based on: patient's age, weight and renal function. P: 1. Begin Vancomycin 750 mg IV q12h after initial loading dose. 2. Follow up Trough level on 07/23/20 at 2030. 3. Pharmacy will continue to monitor, follow and adjust therapy as needed. CLAY HAYES RPH, 07/22/20 [id number]
[2020-07-22] MEDS ORDERED: ENOXAPARIN 40 MG/0.4 ML SYRINGE. SQ ONE (10:30)
--- NOTE | 2020-07-22 10:44 | NUR ---
SS following up with discharge planning. SS reviewed pt chart and discussed with pt RN. Pt is from home with spouse and is currently on room air. COVID19 negative. Pt had heart cath on 07/21/2020. Per case management pt insurance out of network with hospital. SS discussed with cardiology. Pt has heart blockage. Pt on IV Flagyl, IV Vancomycin, and IV Cefepime. Pt's family agreeable to transfer to other hospital. Pt's family prefers [facility] as first option. SS contacted transfer team, ; fax [phone], and made request for transfer. SS faxed records as requested and requested images be clouded to . Pt's family reported that if denies pt they are okay with transfer request to [facility]. Packet, transfer form, and ambulance form on the chart. SS will continue to follow for discharge planning.
[2020-07-22 11:00] VITALS: BP 111/66
--- NOTE | 2020-07-22 11:06 | PDOC ---
[employer] PROGRESS NOTE Date of Service DOS: DATE: 07/22/20 TIME: 10:58 Chief Complaint Chief Complaint Acute chest pain concerning for non-STEMI, status post left heart cath 07/21/2020 with triple-vessel disease and left main vessel involved Consolidated opacity of the left upper lobe posterior segment, lingula and left lower lobe from the superior segment to the lateral and posterior basal segments, and mild volume loss of the left lower lobe. Cavitary lesion suggestive of necrotizing pneumonia Concern for pulmonary malignancy, needing biopsy to rule out Small left pleural effusion. Microcytic anemia concerning for BRYANT Failure to thrive, low BMI 16.[address] surgery evaluation Pending [facility] transfer as patient is out of network for her insurance CT chest to rule out malignancy FOBT, pending ferritin level Lovenox for DVT prophylaxis Protonix GI prophylaxis ADA diet Full code Discussed with RN and SW Disposition pending left heart cath Surrogate decision maker is Julien Farmer History of Present Illness History of Present Illness 07/22/2020 No acute events overnight. Status post left heart cath showing triple-vessel disease. Plan for transfer to for CABG and evaluation by CT surgery because patient's insurance is out of network. Patient has no chest pain at this time. Patient's chart, labs, images were reviewed and discussed with RN 07/21/2020 No acute events overnight. Patient is chest pain-free at this time however her troponins increased from 0.9 to10.0. Plan for left heart cath today. Patient's chart, labs, images were reviewed and discussed with RN 59-year-old female who presented to the Emergency Room with chest pain. Her troponin was a little high at 0.92. She has 2 previous old stents. I discussed the case with Emergency Room physician. We are going to admit the patient and consult Cardiology. Vitals/I&O Vitals/I&O: Vital Signs Date Time Temp Pulse Resp B/P (MAP) Pulse Ox O2 Delivery O2 Flow Rate FiO2 07/22/20 08:00 Nasal Cannula 2.0 07/22/20 07:00 99.0 87 22 130/60 (83) 95 99.0 I & O 07/21/20 07/21/20 07/22/20 15:00 23:00 07:00 Intake Total 480 ml 480 ml 160 ml Output Total 500 ml 1000 ml 500 ml Balance -20 ml -520 ml -340 ml Physical Exam General: Alert, Oriented X3, Cooperative, No acute distress Heart: Regular rate (SR), Normal S1, Normal S2, No murmurs, Other (distant murmurs) Abdomen: Soft, No tenderness Extremities: No cyanosis, No edema Skin: No breakdown, No significant lesion Labs Labs: Laboratory Tests Test 07/21/20 12:20 07/21/20 13:03 07/22/20 06:10 Urine Collection Type Unknown Urine Color Yellow Urine Clarity Clear Urine pH 7.5 (<5.0-8.0) Urine Specific [place] 1.010 (1.000-1.030) Urine Protein Negative mg/dL (NEG-TRACE) Urine Glucose (UA) Negative mg/dL (NEG) Urine Ketones (Stick) Negative mg/dL (NEG) Urine Blood Negative (NEG) Urine Nitrite Negative (NEG) Urine Bilirubin Negative (NEG) Urine Urobilinogen Dipstick 0.2 mg/dL (0.2 mg/dL) Urine Leukocyte Esterase Small (NEG) Urine RBC 0 /HPF (0-2) Urine WBC 1-4 /HPF (0-4) Urine Squamous Epithelial Cells Many /LPF Urine Bacteria Few /HPF (0-FEW) Troponin I Quantitative 5.137 ng/mL (0.000-0.055) White Blood Count 12.8 x10^3/uL (4.0-11.0) Red Blood Count 3.65 x10^6/uL (3.50-5.40) Hemoglobin 8.3 g/dL (12.0-15.5) Hematocrit 26.7 % (36.0-47.0) Mean Corpuscular Volume 73 fL (79-100) Mean Corpuscular Hemoglobin 23 pg (25-35) Mean Corpuscular Hemoglobin Concent 31 g/dL (31-37) Red Cell Distribution Width 17.8 % (11.5-14.5) Platelet Count 595 x10^3/uL (140-400) Neutrophils (%) (Auto) 81 % (31-73) Lymphocytes (%) (Auto) 9 % (24-48) Monocytes (%) (Auto) 9 % (0-9) Eosinophils (%) (Auto) 0 % (0-3) Basophils (%) (Auto) 1 % (0-3) Neutrophils # (Auto) 10.4 x10^3/uL (1.8-7.7) Lymphocytes # (Auto) 1.1 x10^3/uL (1.0-4.8) Monocytes # (Auto) 1.1 x10^3/uL (0.0-1.1) Eosinophils # (Auto) 0.1 x10^3/uL (0.0-0.7) Basophils # (Auto) 0.2 x10^3/uL (0.0-0.2) Assessment and Plan Assessmemt and Plan Problems Medical Problems: (1) Smoking addiction Status: Acute Comment Review of Relevant I have reviewed the following items joao (where applicable) has been applied. Medications: Current Medications Medications (Trade) Dose Ordered Sig/Dilip Route PRN Reason Start Time Stop Time Status Last Admin Dose Admin Atorvastatin Calcium (Lipitor) 40 mg QHS PO 07/21/20 21:00 07/21/20 20:50 Nitroglycerin (Nitroglycerin) 200 mcg 1X ONCE IART 07/21/20 12:00 07/21/20 12:01 DC 07/21/20 11:55 Verapamil HCl (Verapamil) 2.5 mg 1X ONCE IART 07/21/20 12:00 07/21/20 12:01 DC 07/21/20 11:55 Heparin Sodium (Porcine) (Heparin Sodium) 2,500 unit 1X ONCE IART 07/21/20 12:00 07/21/20 12:01 DC 07/21/20 11:56 Heparin Sodium/ Sodium Chloride (HEPARIN for ARTERIAL LINE FLUSH) 1,000 unit 1X ONCE IART 07/21/20 12:00 07/21/20 12:01 DC 07/21/20 11:54 Midazolam HCl (Versed) 2 mg 1X ONCE IV 07/21/20 12:00 07/21/20 12:01 DC 07/21/20 11:56 Fentanyl Citrate (Fentanyl 2ml Vial) 100 mcg 1X ONCE IV 07/21/20 12:00 07/21/20 12:01 DC 07/21/20 11:56 Iodixanol (Visipaque 320) 100 ml 1X ONCE IART 07/21/20 12:00 07/21/20 12:01 DC 07/21/20 11:55 Lidocaine HCl (Xylocaine-Mpf 1% 2ml Vial) 2 ml 1X ONCE INJ 07/21/20 12:00 07/21/20 12:01 DC 07/21/20 11:55 Enoxaparin Sodium (Lovenox 60mg Syringe) 50 mg 1X ONCE SQ 07/21/20 16:45 07/21/20 16:46 DC 07/21/20 17:17 Vancomycin HCl (Vanco Per Pharmacy) 1 each PRN DAILY PRN MC SEE COMMENTS 07/22/20 07:45 07/22/20 10:51 DC 07/22/20 09:22 Cefepime HCl (Maxipime) 1 gm Q12HR IVP 07/22/20 08:00 07/22/20 10:44 DC 07/22/20 09:03 Vancomycin HCl 1.25 gm/Sodium Chloride 250 ml @ 167 mls/hr ONCE ONCE IV 07/22/20 08:00 07/22/20 10:44 DC 07/22/20 09:04 Justifications for Admission Other Justification CASS CLEMENTE MD Jul 22, 2020 11:06
[2020-07-22] MEDS: NICOTINE 14MG PATCH. TD PRN (11:19)
--- NOTE | 2020-07-22 11:43 | PDOC ---
TERRI JERONIMO TUNNEL MINER 07/22/20 1143: CARDIO Progress Notes Date and Time Date of Service 07/22/2020 Time of Evaluation 1140 Subjective Subjective: No Chest Pain, No shortness of breath, No Palpitations Vitals Vitals Vital Signs Date Time Temp Pulse Resp B/P (MAP) Pulse Ox O2 Delivery O2 Flow Rate FiO2 07/22/20 11:00 99.7 96 22 111/66 (81) 100 Room Air 99.7 07/22/20 08:00 2.0 Weight Weight [ ] Input and Output Intake and Output Intake and Output 07/22/20 07:00 Intake Total 1120 ml Output Total 2000 ml Balance -880 ml Intake Oral 1120 ml Output Urine Total 2000 ml Laboratory Labs Laboratory Tests Test 07/21/20 12:20 07/21/20 13:03 07/22/20 06:10 Urine Collection Type Unknown Urine Color Yellow Urine Clarity Clear Urine pH 7.5 (<5.0-8.0) Urine Specific [place] 1.010 (1.000-1.030) Urine Protein Negative mg/dL (NEG-TRACE) Urine Glucose (UA) Negative mg/dL (NEG) Urine Ketones (Stick) Negative mg/dL (NEG) Urine Blood Negative (NEG) Urine Nitrite Negative (NEG) Urine Bilirubin Negative (NEG) Urine Urobilinogen Dipstick 0.2 mg/dL (0.2 mg/dL) Urine Leukocyte Esterase Small (NEG) Urine RBC 0 /HPF (0-2) Urine WBC 1-4 /HPF (0-4) Urine Squamous Epithelial Cells Many /LPF Urine Bacteria Few /HPF (0-FEW) Troponin I Quantitative 5.137 ng/mL (0.000-0.055) White Blood Count 12.8 x10^3/uL (4.0-11.0) Red Blood Count 3.65 x10^6/uL (3.50-5.40) Hemoglobin 8.3 g/dL (12.0-15.5) Hematocrit 26.7 % (36.0-47.0) Mean Corpuscular Volume 73 fL (79-100) Mean Corpuscular Hemoglobin 23 pg (25-35) Mean Corpuscular Hemoglobin Concent 31 g/dL (31-37) Red Cell Distribution Width 17.8 % (11.5-14.5) Platelet Count 595 x10^3/uL (140-400) Neutrophils (%) (Auto) 81 % (31-73) Lymphocytes (%) (Auto) 9 % (24-48) Monocytes (%) (Auto) 9 % (0-9) Eosinophils (%) (Auto) 0 % (0-3) Basophils (%) (Auto) 1 % (0-3) Neutrophils # (Auto) 10.4 x10^3/uL (1.8-7.7) Lymphocytes # (Auto) 1.1 x10^3/uL (1.0-4.8) Monocytes # (Auto) 1.1 x10^3/uL (0.0-1.1) Eosinophils # (Auto) 0.1 x10^3/uL (0.0-0.7) Basophils # (Auto) 0.2 x10^3/uL (0.0-0.2) Microbiology Micro Microbiology 07/20/20 Blood Culture - Preliminary, Resulted NO GROWTH AFTER 1 DAY Physical Exam HEENT: Neck Supple W Full Motion Chest: Symmetric LUNGS: Other (upper rhonchi) Heart: RRR (SR) Abdomen: Soft N/T Extremities: No Edema, No Calf Tenderness Neurology: alert, oriented, follow commands Assessment Assessment 1. NSTEMI: LHC revealed 3VD with LM involvement 2. Pneumonia and COPD with continued tobaccoism: Malignancy? Pulmonary following 3. CAD: last PCI 2003 4. Family hx of premature CAD with SCD: brother 5. ETOH misuse: 3-4 beers nightly for sleep 6. HLP: recently started on statin. on goal 7. HTN: controlled 8. Microcytic hypochromic anemia 9. Suspect Reactive thrombocytosis 10. ICM: EF at 40-45% with anteroseptal hypokinesis. appears compensated Recommendations 1. Will need CTS evaluation for CABG vs high risk PCI. Due to [facility] being out of network per insurance she will be transferred to a tertiary facility and [facility] is part of the network 2. ASA. Lovenox x1 today 3. High dose statin 4. smoking cessation and curbing ETOH use. 5. Will hold off any ACEi/ARB for possible CABG consideration. Will start on metoprolol. 6. Antibiotics ongoing per pulmonary Justicifation of Admission Dx: Justifications for Admission: Justification of Admission Dx: Yes NAHID NORMAN MD 07/22/20 1950: TERRI JERONIMO APRN Jul 22, 2020 11:43 NAHID NORMAN MD Jul 22, 2020 19:50
[2020-07-22] MEDS ORDERED: METOPROLOL TART IMMED RELEASE 25 MG TABLET. PO SCH (11:45)
--- NOTE | 2020-07-22 11:45 | CONS ---
DATE OF CONSULTATION: 07/22/2020 REFERRING PHYSICIAN: Dr. Gil. REASON FOR CONSULTATION: Antibiotic management for lung mass/pneumonia. HISTORY OF PRESENT ILLNESS: A 59-year-old female admitted with complaints of chest pain, headache, which started last Monday. The patient also had nausea and vomiting prior to admission. She has history of longtime smoking, daily EtOH intake, hypertension, and poor dentition. She has not seen a physician for the last couple of years. She has fatigue. She denies being on any antibiotics prior to admission. Denies any history of recurrent hospitalization for pneumonia. White count was elevated at 15,000 with neutrophil segments at 89%, hemoglobin of 8.4, platelets of 652, albumin of 2.2, potassium of 3.2. Troponin was 0.912 and increased to 10.0. Lactate was 1.3. COVID-19 was negative. UA was negative. Blood cultures done remain negative. The patient was started on IV vancomycin, cefepime, and Flagyl. She underwent cardiac catheterization and was found to have a 3-vessel coronary artery disease with left main involvement. Plans are to transfer her to [facility] for further evaluation and treatment. The patient was seen by Pulmonology. Differential of lung mass would be pneumonia versus malignancy. They want the patient to be treated with antibiotics currently and repeat CT in 6 weeks, no plans for bronchoscopy, thoracic surgery has been consulted. ID consultation has been requested for antibiotic management. Today, the patient states her headache has improved. She has poor dentition, but is unable to get any further evaluation and treatment for the same. She has not seen a primary care physician from ____ time. Last chest x-ray was done here in 2017. The patient denies any fevers, chills, hemoptysis. Does have occasional yellow sputum. The patient has lost about 20 pounds in the last couple of years as she does not have much appetite. She did get her COVID vaccine on the 3rd of last month. She was supposed to be revaccinated today. PAST MEDICAL HISTORY: Previous GA in 2004, hypertension, hyperlipidemia, poor dentition. SOCIAL HISTORY: Smoker. Drinks EtOH on a daily basis. Works at [employer]. , lives with . No pets. No travel. FAMILY HISTORY: As per HPI. ALLERGIES: AMLODIPINE, CODEINE, AND LATEX. PAST SURGICAL HISTORY: Cardiac catheterization. REVIEW OF SYSTEMS: Negative except for above in HPI. PHYSICAL EXAMINATION: VITAL SIGNS: Temperature 99, pulse 87, respiratory rate 22, blood pressure 130/60, oxygen saturation 95% on room air. GENERAL: Alert, oriented x 3 female, lying in bed comfortably, in no acute distress. HEENT: Normocephalic, atraumatic, anicteric. Oral mucosa moist. Poor dentition. HEART: S1, S2, no murmurs. ABDOMEN: Soft, nontender, nondistended, no rebound or guarding. No masses. EXTREMITIES: No cyanosis, no edema. DERMATOLOGIC: Warm and dry. No generalized rash. NEUROLOGIC: Alert and oriented x 3, grossly nonfocal. PSYCHIATRIC: Cooperative, appropriate mood and affect. MUSCULOSKELETAL: Changes suggestive of DJD. LABORATORY DATA: WBC 12.8, was 15, hemoglobin 8.3, hematocrit 26.7, platelets 595. Sodium 138, potassium 3.2, chloride 101, bicarbonate 25, BUN 7, creatinine 0.7, glucose 150, lactate 1.3, calcium 8.0, magnesium 2.1, AST 12, ALT 10, alkaline phosphatase 83. CK 75. Albumin 2.2. Troponin quantitative 10.003. IMAGING: Chest x-ray shows dense opacity at the left lung. Differential would be pneumonia as well as lung neoplasm. There are some suspected calcified nodules, which could be chronic ____ disease. CT chest showed consolidative opacity of the left upper lobe posterior segment lingula and left lower lobe from the superior segment to the lateral and posterior basal segments and mild volume loss of the left lower lobe. There are some areas of cavitation within the opacity. This could represent a necrotizing pneumonia. Extensive area of pulmonary infarction with areas of cavitation would be a possibility. Lung malignancy with areas of cavitation involving more than lobe laterally is also a possibility, small left pleural effusion. IMPRESSION: 1. Non-ST elevation myocardial infarction, acute coronary syndrome, status post cardiac catheterization with 3-vessel disease involving left anterior descending . 2. Lung mass, could be infectious vs noninfectious. 3. History of smoking. 4. History of EtOH dependence. 5. Leukocytosis. 6. Protein-calorie malnutrition. 7. COVID-19 negative. 8. Thrombocytosis, likely reactive. 9. Anemia. 10. Hypertension. 11. Hyperlipidemia. RECOMMENDATIONS: 1. Discontinue IV vancomycin, cefepime, and Flagyl. 2. Start Zosyn. 3. Obtain sputum for Gram stain and cultures. 4. Pulmonary is following. May need bronchoscopy. 5. Follow up labs and cultures. 6. Continue supportive care. 7. Per team, the patient is being transferred to tertiary care center for further evaluation and treatment of underlying coronary artery disease and lung mass. Discussed with nursing staff. Thank you for allowing me to participate in this patient's care. If you have any questions, do not hesitate to contact me. Pt seen and examined on 07/23/2020 . D/W MANAGER SERVICING. Coformulated A/P with MANAGER SERVICING. KAITY AQUINO MD DR: ASHLEY/nts JOB#: [id number] / [id number] DEMOND
[2020-07-22] MEDS ORDERED: PIPERACILLIN/TAZOBACTAM 3.375 GM in IV NORMAL SALINE 50ML 50 ML IV SCH (12:00)
--- NOTE | 2020-07-22 12:21 | PDOC ---
PULMONARY PROGRESS NOTES DATE: 07/22/20 TIME: 12:18 Subjective Patient is resting comfortably on 2 L nasal cannula Denies any increased shortness of breath or cough Plan is to transfer to when bed is available Vitals Vital Signs Date Time Temp Pulse Resp B/P (MAP) Pulse Ox O2 Delivery O2 Flow Rate FiO2 07/22/20 11:00 99.7 96 22 111/66 (81) 100 Room Air 99.7 07/22/20 08:00 2.0 ROS: No Nausea, No Chest Pain, No Abdominal Pain, No Increase Cough General: Alert Lungs: Crackles (LML) Cardiovascular: S1 Abdomen: Soft, Non-tender Neuro Exam: Alert Extremities: No Edema Skin: Warm Labs Laboratory Tests Test 07/20/20 17:25 07/20/20 19:20 07/20/20 20:40 07/21/20 05:00 White Blood Count 15.0 x10^3/uL (4.0-11.0) Red Blood Count 3.69 x10^6/uL (3.50-5.40) Hemoglobin 8.4 g/dL (12.0-15.5) Hematocrit 27.1 % (36.0-47.0) Mean Corpuscular Volume 73 fL (79-100) Mean Corpuscular Hemoglobin 23 pg (25-35) Mean Corpuscular Hemoglobin Concent 31 g/dL (31-37) Red Cell Distribution Width 18.2 % (11.5-14.5) Platelet Count 653 x10^3/uL (140-400) Neutrophils (%) (Auto) 85 % (31-73) Lymphocytes (%) (Auto) 8 % (24-48) Monocytes (%) (Auto) 7 % (0-9) Eosinophils (%) (Auto) 0 % (0-3) Basophils (%) (Auto) 0 % (0-3) Neutrophils # (Auto) 12.7 x10^3/uL (1.8-7.7) Lymphocytes # (Auto) 1.2 x10^3/uL (1.0-4.8) Monocytes # (Auto) 1.0 x10^3/uL (0.0-1.1) Eosinophils # (Auto) 0.1 x10^3/uL (0.0-0.7) Basophils # (Auto) 0.1 x10^3/uL (0.0-0.2) Segmented Neutrophils % 89 % (35-66) Lymphocytes % 5 % (24-48) Monocytes % 6 % (0-10) Platelet Estimate Increased (ADEQUATE) Hypochromasia Mod Anisocytosis Slight Microcytosis Slight Prothrombin Time 14.5 SEC (11.7-14.0) Prothromb Time International Ratio 1.2 (0.8-1.1) Activated Partial Thromboplast Time 34 SEC (24-38) Sodium Level 138 mmol/L (136-145) Potassium Level 3.2 mmol/L (3.5-5.1) Chloride Level 101 mmol/L (98-107) Carbon Dioxide Level 25 mmol/L (21-32) Anion Gap 12 (6-14) Blood Urea Nitrogen 7 mg/dL (7-20) Creatinine 0.7 mg/dL (0.6-1.0) Estimated GFR (Cockcroft-Gault) 85.1 BUN/Creatinine Ratio 10 (6-20) Glucose Level 150 mg/dL (70-99) Calcium Level 8.0 mg/dL (8.5-10.1) Magnesium Level 2.1 mg/dL (1.8-2.4) Total Bilirubin 0.2 mg/dL (0.2-1.0) Aspartate Amino Transf (AST/SGOT) 12 U/L (15-37) Alanine Aminotransferase (ALT/SGPT) 10 U/L (14-59) Alkaline Phosphatase 83 U/L (46-116) Creatine Kinase 74 U/L (26-192) Creatine Kinase MB (Mass) 4.5 ng/mL (0.0-3.6) Creatine Kinase MB Relative Index % (0-4) Troponin I Quantitative 0.912 ng/mL (0.000-0.055) 7.477 ng/mL (0.000-0.055) 10.003 ng/mL (0.000-0.055) Total Protein 7.1 g/dL (6.4-8.2) Albumin 2.2 g/dL (3.4-5.0) Albumin/Globulin Ratio 0.4 (1.0-1.7) Lactic Acid Level 1.3 mmol/L (0.4-2.0) Test 07/21/20 07:20 07/21/20 08:00 07/21/20 09:45 07/21/20 12:20 Sodium Level 144 mmol/L (136-145) Potassium Level 4.3 mmol/L (3.5-5.1) Chloride Level 107 mmol/L (98-107) Carbon Dioxide Level 28 mmol/L (21-32) Anion Gap 9 (6-14) Blood Urea Nitrogen 7 mg/dL (7-20) Creatinine 0.7 mg/dL (0.6-1.0) Estimated GFR (Cockcroft-Gault) 85.1 Glucose Level 94 mg/dL (70-99) Calcium Level 8.4 mg/dL (8.5-10.1) Troponin I Quantitative 8.311 ng/mL (0.000-0.055) 7.601 ng/mL (0.000-0.055) Triglycerides Level 60 mg/dL (0-150) Cholesterol Level 107 mg/dL (0-200) LDL Cholesterol, Calculated 53 mg/dL (0-100) VLDL Cholesterol, Calculated 12 mg/dL (0-40) Non-HDL Cholesterol Calculated 65 mg/dL (0-129) HDL Cholesterol 42 mg/dL (40-60) Cholesterol/HDL Ratio 2.5 Coronavirus (PCR) Not detected (Not Detected) SARS-CoV-2 Antigen (Rapid) Negative (NEGATIVE) Ferritin 124 ng/mL (8-252) Thyroid Stimulating Hormone (TSH) 0.426 uIU/mL (0.358-3.74) Urine Collection Type Unknown Urine Color Yellow Urine Clarity Clear Urine pH 7.5 (<5.0-8.0) Urine Specific [place] 1.010 (1.000-1.030) Urine Protein Negative mg/dL (NEG-TRACE) Urine Glucose (UA) Negative mg/dL (NEG) Urine Ketones (Stick) Negative mg/dL (NEG) Urine Blood Negative (NEG) Urine Nitrite Negative (NEG) Urine Bilirubin Negative (NEG) Urine Urobilinogen Dipstick 0.2 mg/dL (0.2 mg/dL) Urine Leukocyte Esterase Small (NEG) Urine RBC 0 /HPF (0-2) Urine WBC 1-4 /HPF (0-4) Urine Squamous Epithelial Cells Many /LPF Urine Bacteria Few /HPF (0-FEW) Test 07/21/20 13:03 07/22/20 06:10 Troponin I Quantitative 5.137 ng/mL (0.000-0.055) White Blood Count 12.8 x10^3/uL (4.0-11.0) Red Blood Count 3.65 x10^6/uL (3.50-5.40) Hemoglobin 8.3 g/dL (12.0-15.5) Hematocrit 26.7 % (36.0-47.0) Mean Corpuscular Volume 73 fL (79-100) Mean Corpuscular Hemoglobin 23 pg (25-35) Mean Corpuscular Hemoglobin Concent 31 g/dL (31-37) Red Cell Distribution Width 17.8 % (11.5-14.5) Platelet Count 595 x10^3/uL (140-400) Neutrophils (%) (Auto) 81 % (31-73) Lymphocytes (%) (Auto) 9 % (24-48) Monocytes (%) (Auto) 9 % (0-9) Eosinophils (%) (Auto) 0 % (0-3) Basophils (%) (Auto) 1 % (0-3) Neutrophils # (Auto) 10.4 x10^3/uL (1.8-7.7) Lymphocytes # (Auto) 1.1 x10^3/uL (1.0-4.8) Monocytes # (Auto) 1.1 x10^3/uL (0.0-1.1) Eosinophils # (Auto) 0.1 x10^3/uL (0.0-0.7) Basophils # (Auto) 0.2 x10^3/uL (0.0-0.2) Laboratory Tests Test 07/21/20 12:20 07/21/20 13:03 07/22/20 06:10 Urine Collection Type Unknown Urine Color Yellow Urine Clarity Clear Urine pH 7.5 (<5.0-8.0) Urine Specific [place] 1.010 (1.000-1.030) Urine Protein Negative mg/dL (NEG-TRACE) Urine Glucose (UA) Negative mg/dL (NEG) Urine Ketones (Stick) Negative mg/dL (NEG) Urine Blood Negative (NEG) Urine Nitrite Negative (NEG) Urine Bilirubin Negative (NEG) Urine Urobilinogen Dipstick 0.2 mg/dL (0.2 mg/dL) Urine Leukocyte Esterase Small (NEG) Urine RBC 0 /HPF (0-2) Urine WBC 1-4 /HPF (0-4) Urine Squamous Epithelial Cells Many /LPF Urine Bacteria Few /HPF (0-FEW) Troponin I Quantitative 5.137 ng/mL (0.000-0.055) White Blood Count 12.8 x10^3/uL (4.0-11.0) Red Blood Count 3.65 x10^6/uL (3.50-5.40) Hemoglobin 8.3 g/dL (12.0-15.5) Hematocrit 26.7 % (36.0-47.0) Mean Corpuscular Volume 73 fL (79-100) Mean Corpuscular Hemoglobin 23 pg (25-35) Mean Corpuscular Hemoglobin Concent 31 g/dL (31-37) Red Cell Distribution Width 17.8 % (11.5-14.5) Platelet Count 595 x10^3/uL (140-400) Neutrophils (%) (Auto) 81 % (31-73) Lymphocytes (%) (Auto) 9 % (24-48) Monocytes (%) (Auto) 9 % (0-9) Eosinophils (%) (Auto) 0 % (0-3) Basophils (%) (Auto) 1 % (0-3) Neutrophils # (Auto) 10.4 x10^3/uL (1.8-7.7) Lymphocytes # (Auto) 1.1 x10^3/uL (1.0-4.8) Monocytes # (Auto) 1.1 x10^3/uL (0.0-1.1) Eosinophils # (Auto) 0.1 x10^3/uL (0.0-0.7) Basophils # (Auto) 0.2 x10^3/uL (0.0-0.2) Medications Active Scripts Medications Dose Route/Sig Max Daily Dose Days Date Category Atorvastatin Calcium 20 Mg Tablet 20 Tab PO QHS 07/21/20 Reported Amlodipine Besylate 5 Mg Tablet 5 Tab PO DAILY 07/21/20 Reported Aspirin 325 Mg Tablet 325 Mg PO DAILY 07/20/20 Reported Lisinopril 20 Mg Tablet 20 Mg PO DAILY 07/20/20 Reported Ventolin Hfa Inhaler (Albuterol Sulfate) 18 Gm Hfa.aer.ad 2 Puff INH Q4HRS 05/14/17 Rx Comments Cardiac cath Conclusion 1. Mildly elevated left sided filling pressures. 2. Three vessel coronary disease with LM involvement. Recommendations 1. Continue w/u for pulmonary issues and CT surgery consultation for evaluation of LM disease and lung mass. 2. Depending on further evaluation, consider high risk PCI versus CABG 3. Continue hep gtt. CT chest IMPRESSION: 1. Consolidated opacity of the left upper lobe posterior segment, lingula and left lower lobe from the superior segment to the lateral and posterior basal segments, and mild volume loss of the left lower lobe. There are some areas of cavitation within the opacity. This could represent a necrotizing pneumonia. Extensive areas of pulmonary infarction with areas of cavitation would also be a possibility. A lung malignancy with areas of cavitation involving more than lobe laterally is also a possibility. 2. Small left pleural effusion. Impression . IMPRESSION: 1. Abnormal x-ray compatible with left lung consolidation, suspect this may be pneumonia, with that being said it is certainly possible that she has underlying lung malignancy. 2. Chest pain, status post cardiac catheterization, patient ruled in for myocardial infarction and she was found to have severe 3-vessel coronary artery disease. 3. Hyperlipidemia. 4. Hypertension. 5. Chronic obstructive pulmonary disease. 6. Tobacco dependent. 7. Hypertension. Plan . PLAN: Continue supplemental oxygen to keep oxygen saturations greater than 92% Repeat CT of chest in 6 weeks Bronchodilators including Pulmicort Continue antibiotic therapy Follow cardiology recommendations Follow cardiothoracic recommendations, patient is being transferred to for further recommendations Educated on the importance of cessation of tobacco use DVT/GI prophylaxis Discussed with RN and patient and at bedside. KRYSTEN PERALTA MD Jul 22, 2020 12:21
--- NOTE | 2020-07-22 12:40 | CARD ---
MR#: [id number] Date of Study: 07/22/2020 Ordering Physician: TERRI JERONIMO, Referring Physician: TERRI JERONIMO, Tech: Neha Galeana, [facility] APPROVED REPORT EXAM: Two-dimensional and M-mode echocardiogram with Doppler and color Doppler. Other Information Quality : AverageHR: 83bpm Technically limited study due to COPD INDICATION COPD Non STEMI RISK FACTORS Hypertension Hyperlipidemia Smoking 2D DIMENSIONS RVDd2.4 (2.9-3.5cm)Left Atrium(2D)2.9 (1.6-4.0cm) IVSd1.0 (0.7-1.1cm)Aortic Root(2D)2.9 (2.0-3.7cm) LVDd5.7 (3.9-5.9cm)LVOT Diameter2.0 (1.8-2.4cm) PWd1.2 (0.7-1.1cm)LVDs4.6 (2.5-4.0cm) FS (%) 19.9 %SV64.5 ml LVEF(%)40.3 (>50%) Aortic Valve AoV Peak Darrick.143.4cm/sAoV VTI24.3cm AO Peak GR.8.2mmHgLVOT Peak Darrick.100.0cm/s LVOT VTI 16.64cmAO Mean GR.4mmHg ANABELLA (VMAX)1.05nm4YLZ (VTI)2.23cm2 Mitral Valve MV E Ukltudzt01.3cm/sMV E Peak Gr.110mmHg MV DECEL [id number] A Vyryjwua71.6cm/s MV EUV52hlP/A Ratio0.8 MVA (PHT)3.18cm2 TDI E/Lateral E'9.6E/Medial E'11.1 Pulmonary Valve PV Peak Qlzrsmxu87.2cm/sPV Peak Grad.2mmHg Tricuspid Valve TR P. Yypvioks877we/sRAP LRAIGMBC5sdQz TR Peak Gr.42woDwIWNP09nxWp Pulmonary Vein S1 Lcekykwa97.6cm/sD2 Fbfbxwwp38.5cm/s PVa pzssibsp896exju LEFT VENTRICLE The left ventricle is normal size. There is mild concentric left ventricular hypertrophy. The left ve ntricular systolic mildly impaired. EF 40-45% The anteroseptum is severely hypokinetic. Distal 1/3 of the LV is mildly hypokinetic. Transmitral Doppler flow pattern is Grade I-abnormal relaxation patter n. RIGHT VENTRICLE The right ventricle is normal size. There is normal right ventricular wall thickness. The right ventr icular systolic function is normal. ATRIA The left atrium size is normal. The right atrium size is normal. The interatrial septum is intact wit h no evidence for an atrial septal defect or patent foramen ovale as noted on 2-D or Doppler imaging. AORTIC VALVE The aortic valve is thickened but opens well. Doppler and Color Flow revealed trace aortic regurgitat ion. There is no significant aortic valvular stenosis. Calculated aortic valve area is 2.45 cm2 with maximum pressure gradient of 10 mmHg and mean pressure gradient of 5 mmHg. MITRAL VALVE The mitral valve is normal in structure and function. There is no evidence of mitral valve prolapse. There is no mitral valve stenosis. Doppler and Color-flow revealed mild mitral regurgitation. TRICUSPID VALVE The tricuspid valve is normal in structure and function. Doppler and Color Flow revealed trace tricus pid regurgitation with an estimated PAP of 38 mmHg. There is no tricuspid valve stenosis. PULMONIC VALVE The pulmonic valve is not well visualized. Doppler and Color Flow revealed trace pulmonic valvular re gurgitation. There is no pulmonic valvular stenosis. GREAT VESSELS The aortic root is normal in size. The IVC is normal in size and collapses >50% with inspiration. PERICARDIAL EFFUSION There is no evidence of significant pericardial effusion. Critical Notification Critical Value: No <Conclusion> The left ventricular systolic mildly impaired. EF 40-45% The anteroseptum is severely hypokinetic. Distal 1/3 of the LV is mildly hypokinetic. Signed by : Asher Pham, Electronically Approved : 07/22/2020 12:39:57
--- NOTE | 2020-07-22 12:57 | NUR ---
SS following up with discharge planning. Pt accepted at . SS spoke with Erica, , in the transfer team. Accepting physician, Dr. Qureshi. SS was informed that they are at high capacity and will notify SS when bed is available for pt. Pt and pt's family notified. SS will await bed assignment and will proceed accordingly.
[2020-07-22 15:00] VITALS: BP 113/70
--- NOTE | 2020-07-22 16:21 | NUR ---
SS following up with discharge planning. Erica, , from transfer center contacted SS with bed assignment. Bed#HC504. Report# [phone]. Pt will discharge today and transfer to via [facility] ambulance, . Packet, ambulance form, and transfer form on the chart. Pt, pt's spouse, and pt's RN notified.
--- NOTE | 2020-07-22 16:31 | SNU/HH DC ---
DISCHARGE ORDERS DISCHARGE INFORMATION: DISCHARGE DATE: Jul 22, 2020 FINAL DIAGNOSIS Problems Medical Problems: (1) Smoking addiction Status: Acute CONDITION ON DISCHARGE: Guarded CODE STATUS: Code Status: Full POST DISCHARGE ORDERS: ACTIVITY ORDERS: Activity as tolerated WEIGHT BEARING STATUS: As tolerated DIET AFTER DISCHARGE: Cardiac CHECKS AFTER DISCHARGE: CHECKS AFTER DISCHARGE: Check blood press - daily, Check blood sugar, ac/hs, Check your Temp as needed, Weigh Yourself Daily FOLLOW-UP: PHYSICIAN FOLLOW-UP: PCP within 2 weeks of discharge ADDITIONAL FOLLOW-UP: CT surgery evaluation LAB ORDERS FOR FOLLOW-UP: CBC, CMP TREATMENT/EQUIPMENT ORDERS: INFUSION EQUIPMENT NEEDED: IV Line Physical Therapy For: Evalulation/Treatment Occupational Therapy For: Evaluation/Treatment DISCHARGE MEDICATIONS: Home Meds Active Scripts Albuterol Sulfate (VENTOLIN HFA INHALER) 18 Gm Hfa.aer.ad, 2 PUFF INH Q4HRS for FOR ASTHMA, #1 INHALER 0 Refills Prov:LUKASZ MITCHELL APRN 05/14/17 Reported Medications Atorvastatin Calcium (ATORVASTATIN CALCIUM) 20 Mg Tablet, 20 TAB PO QHS for hyperlipidemia 07/21/20 Amlodipine Besylate (AMLODIPINE BESYLATE) 5 Mg Tablet, 5 TAB PO DAILY for hypertension 07/21/20 Aspirin (ASPIRIN) 325 Mg Tablet, 325 MG PO DAILY for CAD, TAB 07/20/20 Lisinopril (LISINOPRIL) 20 Mg Tablet, 20 MG PO DAILY for FOR HYPERTENSION, #30 TAB 0 Refills 07/20/20 CASS CLEMENTE MD Jul 22, 2020 16:31
--- NOTE | 2020-07-22 17:23 | NUR ---
Discharge Note: SHAHRAM ESPINO [address] Discharge instructions and discharge home medications reviewed with Other facility and a copy given. All questions have been answered and understanding verbalized. Patient discharged to [facility] with via fire department. Report given to Racquel at [phone]) at [phone]. Will send discharge packet with EMS.
[2020-07-22] MEDS ORDERED: VANCOMYCIN 750 MG in IV NORMAL SALINE 250ML 250 ML IV SCH (21:00)
== END 2020-07-22 17:30 | disposition short-term general hospital (02) | DRG 280 ==
LOC: ER 17:12 → 2 SOUTH 19:00
PROVIDERS: ADMIT Internal Medicine; ATTEND Internal Medicine
PROC: 4A023N7 Measurement of Cardiac Sampling and Pressure, Left Heart, Percutaneous Approach (ICD-10-PCS; principal; 2020-07-21)
PROC: B2111ZZ Fluoroscopy of Multiple Coronary Arteries using Low Osmolar Contrast (ICD-10-PCS; 2020-07-21)
DX: I21.4 Non-ST elevation (NSTEMI) myocardial infarction (principal); J18.1 Lobar pneumonia, unspecified organism; J44.0 Chronic obstructive pulmonary disease with (acute) lower respiratory infection; E46 Unspecified protein-calorie malnutrition; Z68.1 Body mass index [BMI] 19.9 or less, adult; R79.1 Abnormal coagulation profile; E78.00 Pure hypercholesterolemia, unspecified; I10 Essential (primary) hypertension; F17.210 Nicotine dependence, cigarettes, uncomplicated; Z20.822 Contact with and (suspected) exposure to COVID-19; D50.9 Iron deficiency anemia, unspecified; R62.7 Adult failure to thrive; E83.51 Hypocalcemia; E87.6 Hypokalemia; M19.90 Unspecified osteoarthritis, unspecified site; I25.10 Atherosclerotic heart disease of native coronary artery without angina pectoris; E78.5 Hyperlipidemia, unspecified; I25.2 Old myocardial infarction; Z79.82 Long term (current) use of aspirin; Z98.49 Cataract extraction status, unspecified eye; Z88.5 Allergy status to narcotic agent; Z88.8 Allergy status to other drugs, medicaments and biological substances; Z91.040 Latex allergy status; Z82.49 Family history of ischemic heart disease and other diseases of the circulatory system
CPT/HCPCS: 36415; 71045; 71250; 75625; 80048; 80053; 80061; 81001; 82553; 82728; 83605; 83735; 84443; 84484; 85007; 85025; 85610; 85730; 87040; 87426; 93005; 93306; 93458; 94640; 96372; 99152; 99153; 99291; C1769; C1892; J0692; J1644; J1650; J2250; J2543; J3010; J3370; J3490; J7050; Q9967; U0003; G0378; J7030; J7613